=== PATIENT | male | born 1940 | race Caucasian/White ===

== ENCOUNTER 2016-06-27 01:42 | Emergency (ER) | payer OTHER ==
[~2016-06-27] VITALS: Ht 177.8 cm; Wt 77.0 kg
[~2016-06-27 01:42] MED LIST: AMLO10TA2 PO; LAMO100T PO; LISI20TA PO; METF500T PO; NOVONP2 SQ; OCUVTAB4 PO; PLAV75TA29 PO; PRIM50TA5 PO; SERT-132 PO; SIMV20TA PO; VITA100036 PO; VITA10004 PO
[2016-06-27 01:53] VITALS: BP 148/77; PULSE 67; RESP 18; TEMP 97.6; O2SAT 96
[2016-06-27 02:00] VITALS: RESP 18; O2SAT 98
[2016-06-27] MEDS ORDERED: MECL-62 PO (02:00)
[2016-06-27 02:01] VITALS: BP 148/77; PULSE 67; RESP 18; TEMP 97.6; O2SAT 96
[2016-06-27] MEDS ORDERED: SODIUM CHLOR 0.9% 1000 ML INJ 1,000 ML IV SCH ×2 (03:04→04:15)
[2016-06-27] MEDS ORDERED: SODIUM CHLORIDE 0.9% FLUSH 5 ML FLUSH IVF PRN (03:15)
--- NOTE | 2016-06-27 03:25 | RADHPO ---
EXAM DATE/TIME: 06/27/2016 03:02 [facility] COMPARISON: CT BRAIN W/O CONTRAST, March 27, 2016, 14:54. INDICATIONS : Altered mental status. RADIATION DOSE: 60.08 CTDIvol (mGy) MEDICAL HISTORY : Diabetes mellitus type 2. Hypertension. Cerebrovascular disease. SURGICAL HISTORY : None. ENCOUNTER: Initial ACUITY: 1 day PAIN SCALE: 0/10 LOCATION: cranial TECHNIQUE: Multiple contiguous axial images were obtained of the head. Using automated exposure control and adj ustment of the mA and/or kV according to patient size, radiation dose was kept as low as reasonably a chievable to obtain optimal diagnostic quality images. FINDINGS: There are remote thalamic and basal ganglia lacunar infarcts bilaterally. Patchy white matter disease is noted in the bilateral centrum semiovale and periventricular white matter which is stable. There are no signs of acute infarct, intracranial hemorrhage or mass. No fractures. CONCLUSION: Remote infarcts and white matter disease. Nroth Hankins MD on June 27, 2016 at 3:22 Board Certified Radiologist. This report was verified electronically.
[2016-06-27 03:37] VITALS: BP 133/68; PULSE 62; RESP 18; O2SAT 97
[2016-06-27 03:41] LABS: AUTOMATED NEUTROPHIL # 5.2 TH/MM3 (1.8-7.7); BASOPHIL % 0.6 % (0.0-2.0); EOSINOPHIL # 0.3 TH/MM3 (0-0.4); EOSINOPHIL % 3.9 % (0.0-4.0); HEMATOCRIT 42.2 % (39.0-51.0); HEMO FLAGS DIFF FINAL; LYMPHOCYTE # 1.6 TH/MM3 (1.0-4.8); MEAN CELL VOLUME 89.9 FL (80.0-100.0); MEAN CORPUSCULAR HEMOGLOBIN 30.8 PG (27.0-34.0); MEAN CORPUSCULAR HGB CONC 34.3 % (32.0-36.0); MONO % 7.8 % (0.0-8.0); NEUT % 66.7 % (16.0-70.0); PLATELET COUNT 206 TH/MM3 (150-450); RED CELL DISTRIBUTION WIDTH 12.4 % (11.6-17.2); WHITE BLOOD COUNT 7.7 TH/MM3 (4.0-11.0)
[2016-06-27 03:46] LABS: CHLORIDE 101 MEQ/L (98-107); POTASSIUM 4.5 MEQ/L (3.5-5.1); SODIUM (NA) 140 MEQ/L (136-145)
[2016-06-27 03:50] LABS: ANION GAP 8 MEQ/L (5-15); BICARBONATE 31.2 MEQ/L (21.0-32.0); BLOOD UREA NITROGEN 22 MG/DL (7-18)
[2016-06-27 03:53] LABS: ALT (GPT) 15 U/L (12-78); AST (GOT) 9 U/L (15-37); GLOMERULAR FILTRATION RATE 59 ML/MIN (>89)
[2016-06-27 03:54] LABS: TOTAL BILIRUBIN ADULT 0.3 MG/DL (0.2-1.0)
[2016-06-27 03:55] LABS: ALKALINE PHOSPHATASE 38 U/L (45-117)
--- NOTE | 2016-06-27 04:25 | PD ---
HPI Chief Complaint: General Weakness Time Seen by Provider: 03:04 Travel History International Travel<30 days: No Contact w/Intl Traveler<30days: No Traveled to known affect area: No History of Present Illness HPI The patient is a 76-year-old male that complains of persistent lightheadedness and generalized weakness for 2 days. He does have a history of multiple strokes in the past. He states he was nauseated yesterday and was not drinking fluids. He denies any fever. He is not nauseated now but feels lightheaded. He denies any focal neurologic change. He has had strokes in the past which left him with some right sided hemiparesis and numbness on the right side. PFSH Past Medical History Hx Anticoagulant Therapy: Yes Arthritis: Yes Asthma: No Autoimmune Disease: No Anxiety: Yes (SEVERELY CLAUSTROPHIC W/MRI) Depression: Yes Heart Rhythm Problems: No Cancer: Yes (PROSTATE 2010, skin) Cardiovascular Problems: Yes High Cholesterol: Yes Chemotherapy: No Chest Pain: No Congestive Heart Failure: No COPD: No Cerebrovascular Accident: Yes Diabetes: Yes Patient Takes Glucophage: Yes Diminished Hearing: Yes Endocrine: Yes Gastrointestinal Disorders: No GERD: No Genitourinary: Yes (KIDNEY FUNCTION ) Headaches: Yes Hiatal Hernia: No Heparin Induced Thrombocytopen: No Hypertension: Yes Immune Disorder: No Implanted Vascular Access Dvce: No Kidney Stones: No Musculoskeletal: Yes Neurologic: Yes (CVA 2008, 2014) Psychiatric: No Reproductive: No Respiratory: No Immunizations Current: Yes Migraines: No Myocardial Infarction: No Radiation Therapy: Yes (2010) Renal Failure: No Seizures: No Sickle Cell Disease: No Sleep Apnea: No Thyroid Disease: No Ulcer: No Tetanus Vaccination: < 5 Years Influenza Vaccination: Yes PNEUMOCCOCAL Vaccine (Year): 1 Past Surgical History Abdominal Surgery: Yes (appy) AICD: No Appendectomy: Yes Arteriovenous Shunt: No Cardiac Surgery: No Ear Surgery: No Endocrine Surgery: No Eye Surgery: No Genitourinary Surgery: No Gynecologic Surgery: No Insulin Pump: No Joint Replacement: No Neurologic Surgery: No Oral Surgery: No Pacemaker: No Thoracic Surgery: No Other Surgery: Yes Family History Family Hypercholesterolemia: Yes Social History Alcohol Use: No Tobacco Use: No Substance Use: No Allergies-Medications (Allergen,Severity, Reaction): Coded Allergies: No Known Allergies (Verified , 1/27/17) Reported Meds & Prescriptions Reported Meds & Active Scripts Active Plavix (Clopidogrel Bisulfate) 75 Mg Tab 75 Mg PO DAILY 30 Days Reported Meclizine (Meclizine HCl) 25 Mg Tab 25 Mg PO BID NEB PRN Vitamin B12 Tr (Cyanocobalamin) 1,000 Mcg Tab 1,000 Mcg PO DAILY Vitamin D3 (Cholecalciferol) 1,000 Unit Cap 1,000 Units PO DAILY Preservision Areds (Multiple Vitamins W/ Minerals) 1 Tab 1 Tab PO DAILY Amlodipine (Amlodipine Besylate) 10 Mg Tab 10 Mg PO DAILY Sertraline (Sertraline HCl) 50 Mg Tab 50 Mg PO DAILY Novolin N Inj (Insulin Human NPH) 1,000 Unit/10 Ml Vial 14 Units SQ DAILY Primidone 50 Mg Tab 150 Mg PO DAILY Lamotrigine 100 Mg Tab 100 Mg PO DAILY Simvastatin 20 Mg Tab 20 Mg PO DAILY Lisinopril-Hctz 20-12.5 Mg Tab 1 Tab PO DAILY Metformin (Metformin HCl) 500 Mg Tab 1,000 Mg PO DAILY With a meal Review of Systems Except as stated in HPI: all other systems reviewed are Neg Physical Exam Narrative GENERAL: The patient is alert, oriented 3, moderately dehydrated appearing in otherwise no apparent distress. His vital signs show blood pressure 148/77 but are otherwise normal. SKIN: Warm and dry. He has some peeling of dry skin present which is chronic. HEAD: Atraumatic. Normocephalic. EYES: Pupils equal and round. No scleral icterus. No injection or drainage. ENT: No nasal bleeding or discharge. Mucous membranes pink but somewhat dry. NECK: Trachea midline. No JVD. CARDIOVASCULAR: Regular rate and rhythm. No murmur appreciated. RESPIRATORY: No accessory muscle use. Clear to auscultation. Breath sounds equal bilaterally. GASTROINTESTINAL: Abdomen soft, non-tender, nondistended. Hepatic and splenic margins not palpable. MUSCULOSKELETAL: No obvious deformities. No clubbing. No cyanosis. No edema. NEUROLOGICAL: Awake and alert. No obvious cranial nerve deficits. Normal speech. 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 I can tell some slight difference with a slight right sided weakness in the upper arm strength PSYCHIATRIC: Appropriate mood and affect; insight and judgment normal. Data Data Last Documented VS Vital Signs Date Time Temp Pulse Resp B/P Pulse Ox O2 Delivery O2 Flow Rate FiO2 06/27/16 03:37 62 18 133/68 97 Room Air 06/27/16 02:[address] Brain W/O Iv Contrast(Rout) (06/27/16 02:55) Complete Blood Count With Diff (06/27/16 03:04) Comprehensive Metabolic Panel (06/27/16 03:04) Lipase (06/27/16 03:04) Urinalysis - C+S If Indicated (06/27/16 03:04) Iv Access Insert/Monitor (06/27/16 03:04) Ecg Monitoring (06/27/16 03:04) Oximetry (06/27/16 03:04) Sodium Chlor 0.9% 1000 Ml Inj (Ns 1000 M (06/27/16 03:04) Sodium Chloride 0.9% Flush (Ns Flush) (06/27/16 03:15) Sodium Chlor 0.9% 1000 Ml Inj (Ns 1000 M (06/27/16 04:15) Labs Laboratory Tests Test 06/27/16 06/27/16 03:15 04:20 White Blood Count 7.7 TH/MM3 Red Blood Count 4.70 MIL/MM3 Hemoglobin 14.5 GM/DL Hematocrit 42.2 % Mean Corpuscular Volume 89.9 FL Mean Corpuscular Hemoglobin 30.8 PG Mean Corpuscular Hemoglobin 34.3 % Concent Red Cell Distribution Width 12.4 % Platelet Count 206 TH/MM3 Mean Platelet Volume 8.1 FL Neutrophils (%) (Auto) 66.7 % Lymphocytes (%) (Auto) 21.0 % Monocytes (%) (Auto) 7.8 % Eosinophils (%) (Auto) 3.9 % Basophils (%) (Auto) 0.6 % Neutrophils # (Auto) 5.2 TH/MM3 Lymphocytes # (Auto) 1.6 TH/MM3 Monocytes # (Auto) 0.6 TH/MM3 Eosinophils # (Auto) 0.3 TH/MM3 Basophils # (Auto) 0.0 TH/MM3 CBC Comment DIFF FINAL Differential Comment Sodium Level 140 MEQ/L Potassium Level 4.5 MEQ/L Chloride Level 101 MEQ/L Carbon Dioxide Level 31.2 MEQ/L Anion Gap 8 MEQ/L Blood Urea Nitrogen 22 MG/DL Creatinine 1.20 MG/DL Estimat Glomerular Filtration 59 ML/MIN Rate Random Glucose 90 MG/DL Calcium Level 9.3 MG/DL Total Bilirubin 0.3 MG/DL Aspartate Amino Transf 9 U/L (AST/SGOT) Alanine Aminotransferase 15 U/L (ALT/SGPT) Alkaline Phosphatase 38 U/L Total Protein 7.0 GM/DL Albumin 3.7 GM/DL Lipase 214 U/L Urine Color YELLOW Urine Turbidity CLEAR Urine pH 5.5 Urine Specific [place] 1.012 Urine Protein NEG mg/dL Urine Glucose (UA) NEG mg/dL Urine Ketones NEG mg/dL Urine Occult Blood NEG Urine Nitrite NEG Urine Bilirubin NEG Urine Leukocyte Esterase NEG Urine RBC 0-2 /hpf Urine WBC 0-2 /hpf Urine Squamous Epithelial 0-5 /hpf Cells Urine Bacteria NONE /hpf Microscopic Urinalysis Comment CULT NOT INDICATED MDM Medical Decision Making Medical Screen Exam Complete: Yes Emergency Medical Condition: Yes Medical Record Reviewed: Yes Interpretation(s) The CBC is normal. The complete metabolic profile is normal except for a BUN of [address] brain shows remote infarcts and white matter disease but no acute change and no sign of acute infarct, intracranial hemorrhage or mass. The urinalysis was obtained after 2 L of fluid was given to the patient and is normal. Differential Diagnosis Dehydration, electrolyte disorder, ischemic CVA, intracranial bleedunlikely, intracranial massunlikely, hypo-/hyperglycemia, renal insufficiency, pancreatitis, gastroenteritis Narrative Course It is now 0414 and the patient feels much better. He has been hydrated with 1 L of fluid and still could use another liter fluid. He is still unable to make urine, likely because he is so dehydrated. The BUN suggest dehydration and is elevated at 22. Diagnosis Primary Impression: Dehydration, moderate Additional Instructions: It appears that your symptoms were caused by dehydration. I can find no evidence of stroke either on the CT scan or clinically. I do find evidence of dehydration on your laboratory work. Follow-up with your primary care physician next week. Med/Other Pt SpecificInfo: No Change to Meds Disposition: 01 DISCHARGE HOME Condition: Stable Patrick Jauregui MD Jun 27, 2016 04:25
[2016-06-27 04:33] LABS: BLOOD, URINE NEG (NEG); GLUCOSE,URINE NEG (NEG); KETONE, URINE NEG (NEG); NITRITE,URINE NEG (NEG); PH, URINE 5.5 (5.0-8.5)
[2016-06-27 04:41] LABS: COMMENT (UR) CULT NOT INDICATED; CULTURE IF INDICATED CULT NOT INDICATED; RBC, URINE 0-2 /hpf (0-3); SQUAMOUS EPITHELIAL CELL URINE 0-5 /hpf (0-5); URINE COLOR YELLOW (YELLW/STRAW); WBC, URINE 0-2 /hpf (0-5)
[2016-06-27 05:26] VITALS: BP 137/79; PULSE 66; RESP 18; O2SAT 97
== END 2016-06-27 05:29 | disposition home or self-care (01) ==
LOC: PHED 01:42
DX: E86.0 Dehydration (principal)
CPT/HCPCS: 70450; 80053; 81001; 83690; 85025; 96360; 96361; 99285; J7030

== ENCOUNTER 2017-03-01 10:36 | Emergency (ER) | payer OTHER ==
[~2017-03-01] VITALS: Ht 177.8 cm; Wt 80.5 kg
[~2017-03-01 10:36] MED LIST changes: +MECL-62 PO
[2017-03-01 11:04] VITALS: BP 166/68; PULSE 52; RESP 16; TEMP 98; O2SAT 96
--- NOTE | 2017-03-01 11:09 | PD ---
HPI Chief Complaint: generalized weakness Time Seen by Provider: 10:48 Travel History International Travel<30 days: No Contact w/Intl Traveler<30days: No Traveled to known affect area: No History of Present Illness HPI This patient has history of strokes and vertigo and ataxia. He gets around at home with a combination of wheelchair and walker and cane. He woke up this morning at 5 AM and felt lightheaded. He felt like he had generalized weakness. Denies any specific muscle group weakness anywhere. He does have chronic right sided numbness from prior stroke. He denies any change in that. He also has problems with vertigo. He closes his eyes he feels dizzy and has room spinning sensation. He says that his head feels "full" . Denies headache. He is fairly vague. It was moderately severe. Duration is 6 hours but symptoms are present when he woke up. No alleviating factors. No obvious exacerbating factors. PFSH Past Medical History Hx Anticoagulant Therapy: Yes Arthritis: Yes Asthma: No Autoimmune Disease: No Anxiety: Yes (SEVERELY CLAUSTROPHIC W/MRI) Depression: Yes Heart Rhythm Problems: No Cancer: Yes (PROSTATE 2010, skin) Cardiovascular Problems: Yes High Cholesterol: Yes Chemotherapy: No Chest Pain: No Congestive Heart Failure: No COPD: No Cerebrovascular Accident: Yes Diabetes: Yes Diminished Hearing: Yes Endocrine: Yes Gastrointestinal Disorders: No GERD: No Genitourinary: Yes (KIDNEY FUNCTION ) Headaches: Yes Hiatal Hernia: No Heparin Induced Thrombocytopen: No Hypertension: Yes Immune Disorder: No Implanted Vascular Access Dvce: No Kidney Stones: No Musculoskeletal: Yes Neurologic: Yes (CVA 2008, 2014) Psychiatric: No Reproductive: No Respiratory: No Immunizations Current: Yes Migraines: No Myocardial Infarction: No Radiation Therapy: Yes (2010) Renal Failure: No Seizures: No Sickle Cell Disease: No Sleep Apnea: No Thyroid Disease: No Ulcer: No PNEUMOCCOCAL Vaccine (Year): 1 Past Surgical History Abdominal Surgery: Yes (app) AICD: No Appendectomy: Yes Arteriovenous Shunt: No Cardiac Surgery: No Ear Surgery: No Endocrine Surgery: No Eye Surgery: No Genitourinary Surgery: No Gynecologic Surgery: No Insulin Pump: No Joint Replacement: No Neurologic Surgery: No Oral Surgery: No Pacemaker: No Thoracic Surgery: No Other Surgery: Yes Family History Family Hypercholesterolemia: Yes Social History Alcohol Use: No Tobacco Use: No Substance Use: No Allergies-Medications (Allergen,Severity, Reaction): Coded Allergies: No Known Allergies (Verified , 03/01/17) Reported Meds & Prescriptions Reported Meds & Active Scripts Active Plavix (Clopidogrel Bisulfate) 75 Mg Tab 75 Mg PO DAILY 30 Days Reported Meclizine (Meclizine HCl) 25 Mg Tab 25 Mg PO BID NEB PRN Vitamin B12 Tr (Cyanocobalamin) 1,000 Mcg Tab 1,000 Mcg PO DAILY Vitamin D3 (Cholecalciferol) 1,000 Unit Cap 1,000 Units PO DAILY Preservision Areds (Multiple Vitamins W/ Minerals) 1 Tab 1 Tab PO DAILY Amlodipine (Amlodipine Besylate) 10 Mg Tab 10 Mg PO DAILY Sertraline (Sertraline HCl) 50 Mg Tab 50 Mg PO DAILY Novolin N Inj (Insulin Human NPH) 1,000 Unit/10 Ml Vial 14 Units SQ DAILY Primidone 50 Mg Tab 150 Mg PO DAILY Lamotrigine 100 Mg Tab 100 Mg PO DAILY Simvastatin 20 Mg Tab 20 Mg PO DAILY Lisinopril-Hctz 20-12.5 Mg Tab 1 Tab PO DAILY Metformin (Metformin HCl) 500 Mg Tab 1,000 Mg PO DAILY With a meal Review of Systems General / Constitutional: No: Fever Eyes: No: Visual changes HENT: Positive: Vertigo, Lightheadedness, No: Headaches Cardiovascular: No: Chest Pain or Discomfort Respiratory: No: Shortness of Breath Gastrointestinal: No: Abdominal Pain Genitourinary: No: Dysuria Musculoskeletal: No: Pain Skin: No Rash Neurologic: Positive: Weakness, Dizziness, Tremor, Ataxia Psychiatric: No: Depression Endocrine: No: Polydipsia Hematologic/Lymphatic: No: Easy Bruising Physical Exam Narrative GENERAL: Well-nourished, well-developed patient in no apparent distress. SKIN: Focused skin assessment reveals no rash and nodules. Skin is Warm and dry. HEAD: Atraumatic. Normocephalic. EYES: Pupils equal and round. No scleral icterus. No injection or drainage. ENT: No nasal bleeding or discharge. Mucous membranes pink and moist. NECK: Trachea midline. No JVD. CARDIOVASCULAR: Regular rate and rhythm. No murmur appreciated. RESPIRATORY: No accessory muscle use. Clear to auscultation. Breath sounds equal bilaterally. GASTROINTESTINAL: Abdomen soft, non-tender, nondistended. Hepatic and splenic margins not palpable. MUSCULOSKELETAL: No obvious deformities. No clubbing. No cyanosis. No edema. NEUROLOGICAL: Awake and alert. No obvious cranial nerve deficits. Motor grossly within normal limits. Normal speech. Slight right hand tremor. No facial droop. PSYCHIATRIC: Appropriate mood and affect; insight and judgment normal. Data Data Last Documented VS Vital Signs Date Time Temp Pulse Resp B/P (MAP) Pulse Ox O2 Delivery O2 Flow Rate FiO2 03/01/17 11:13 (100) 03/01/17 11:11 Room Air 03/01/17 11:10 95 03/01/17 11:04 98.0 52 16 Orders Orders Electrocardiogram (03/01/17 11:01) Prothrombin Time / Inr (Pt) (03/01/17 11:01) Act Partial Throm Time (Ptt) (03/01/17 11:01) Complete Blood Count With Diff (03/01/17 11:01) Basic Metabolic Panel (Bmp) (03/01/17 11:01) Urinalysis - C+S If Indicated (03/01/17 11:01) Ct Brain W/O Iv Contrast(Rout) (03/01/17 11:01) Ecg Monitoring (03/01/17 11:01) Iv Access Insert/Monitor (03/01/17 11:01) Oximetry (03/01/17 11:01) Sodium Chloride 0.9% Flush (Ns Flush) (03/01/17 11:15) Labs Laboratory Tests Test 03/01/17 11:05 White Blood Count 5.8 TH/MM3 Red Blood Count 4.98 MIL/MM3 Hemoglobin 14.9 GM/DL Hematocrit 45.3 % Mean Corpuscular Volume 90.9 FL Mean Corpuscular Hemoglobin 29.9 PG Mean Corpuscular Hemoglobin Concent 32.9 % Red Cell Distribution Width 12.7 % Platelet Count 208 TH/MM3 Mean Platelet Volume 8.2 FL Neutrophils (%) (Auto) 66.9 % Lymphocytes (%) (Auto) 20.6 % Monocytes (%) (Auto) 8.9 % Eosinophils (%) (Auto) 2.8 % Basophils (%) (Auto) 0.8 % Neutrophils # (Auto) 3.9 TH/MM3 Lymphocytes # (Auto) 1.2 TH/MM3 Monocytes # (Auto) 0.5 TH/MM3 Eosinophils # (Auto) 0.2 TH/MM3 Basophils # (Auto) 0.0 TH/MM3 CBC Comment DIFF FINAL Differential Comment Prothrombin Time 11.2 SEC Prothromb Time International Ratio 1.0 RATIO Activated Partial Thromboplast Time 26.3 SEC Blood Urea Nitrogen 19 MG/DL Creatinine 1.10 MG/DL Random Glucose 116 MG/DL Calcium Level 9.5 MG/DL Sodium Level 136 MEQ/L Potassium Level 4.2 MEQ/L Chloride Level 97 MEQ/L Carbon Dioxide Level 33.0 MEQ/L Anion Gap 6 MEQ/L Estimat Glomerular Filtration Rate 65 ML/MIN MDM Medical Decision Making Medical Screen Exam Complete: Yes Emergency Medical Condition: Yes Medical Record Reviewed: Yes Differential Diagnosis TIA, CVA, vertigo Narrative Course I have reviewed the patient's electronic medical record. Reviewed his neurology consultation from his admission of May 2016. IV placed CBC is normal Metabolic profile is normal Coagulation studies are normal I reviewed his EKG which shows sinus rhythm without ectopy Extended cardiac monitoring reveals sinus rhythm without ectopy Brain CT is normal Patient symptoms are vague and generalized. I don't see any focal findings on exam or anything to suggest acute stroke or TIA. There is at least some component of vertigo to this. I tried to discuss with his neurologist Dr. West. We've tried over the last hour and a half but no response to messages left. I'm going to discharge him home. He will call his neurologist tomorrow. Hopefully he will be able to get through he is here. He does have an appointment in 3 days set up. Diagnosis Primary Impression: Generalized weakness Additional Impressions: Dizziness BPV (benign positional vertigo) Qualified Codes: H81.10 - Benign paroxysmal vertigo, unspecified ear Additional Instructions: The patient was advised to follow up with their physician and return if they worsen. Med/Other Pt SpecificInfo: Other Disposition: DISCHARGE HOME Condition: Stable Dandre Chin MD Mar 01, 2017 11:09
[2017-03-01 11:10] VITALS: O2SAT 95
[2017-03-01] MEDS ORDERED: SODIUM CHLORIDE 0.9% FLUSH 10 ML FLUSH IVF PRN (11:15)
[2017-03-01 11:21] LABS: AUTOMATED NEUTROPHIL # 3.9 TH/MM3 (1.8-7.7); BASOPHIL % 0.8 % (0.0-2.0); EOSINOPHIL # 0.2 TH/MM3 (0-0.4); EOSINOPHIL % 2.8 % (0.0-4.0); HEMATOCRIT 45.3 % (39.0-51.0); HEMO FLAGS DIFF FINAL; LYMPH % 20.6 % (9.0-44.0); LYMPHOCYTE # 1.2 TH/MM3 (1.0-4.8); MEAN CELL VOLUME 90.9 FL (80.0-100.0); MEAN CORPUSCULAR HEMOGLOBIN 29.9 PG (27.0-34.0); MEAN CORPUSCULAR HGB CONC 32.9 % (32.0-36.0); MONO % 8.9 % (0.0-8.0); NEUT % 66.9 % (16.0-70.0); PLATELET COUNT 208 TH/MM3 (150-450); RED BLOOD COUNT 4.98 MIL/MM3 (4.50-5.90); RED CELL DISTRIBUTION WIDTH 12.7 % (11.6-17.2); WHITE BLOOD COUNT 5.8 TH/MM3 (4.0-11.0)
[2017-03-01 11:30] LABS: POTASSIUM 4.2 MEQ/L (3.5-5.1)
[2017-03-01 11:34] LABS: APTT (PATIENT) 26.3 SEC (24.3-30.1); PROTHROMBIN TIME - PATIENT 11.2 SEC (9.8-11.6)
--- NOTE | 2017-03-01 11:53 | RADRPT ---
EXAM DATE/TIME: 03/01/2017 11:38 [facility] COMPARISON: CT BRAIN W/O CONTRAST, June 27, 2016, 3:02. INDICATIONS : Generalized weakness and dizziness. RADIATION DOSE: 57.50 CTDIvol (mGy) MEDICAL HISTORY : Cerebrovascular disease. Carcinoma, prostate. Skin cancer. Diabetes. SURGICAL HISTORY : Appendectomy. ENCOUNTER: Initial ACUITY: 1 day PAIN SCALE: 0/10 LOCATION: cranial TECHNIQUE: Multiple contiguous axial images were obtained of the head. Using automated exposure control and adj ustment of the mA and/or kV according to patient size, radiation dose was kept as low as reasonably a chievable to obtain optimal diagnostic quality images. DICOM format image data is available electro nically for review and comparison. FINDINGS: CEREBRUM: The ventricles are normal for age. No evidence of midline shift, mass lesion, hemorrhage or acute in farction. No extra-axial fluid collections are seen. POSTERIOR FOSSA: The cerebellum and brainstem are intact. The 4th ventricle is midline. The cerebellopontine angle i s unremarkable. EXTRACRANIAL: The visualized portion of the orbits is intact. SKULL: The calvaria is intact. No evidence of skull fracture. CONCLUSION: No acute disease. Jenn Hope MD on March 01, 2017 at 11:51 Board Certified Radiologist. This report was verified electronically.
--- NOTE | 2017-03-01 12:05 | EKG ---
Date Performed: 03/01/2017 Time Performed: 10:48:15 PTAGE: 76 years EKG: SINUS BRADYCARDIA BORDERLINE ECG PREVIOUS TRACING : 03/27/2016 14.41 No change from previous tracing noted. DOCTOR: Tony Garcia Interpretating Date/Time 03/01/2017 12:03:29
[2017-03-01 13:55] VITALS: BP 148/73; PULSE 51; RESP 18; O2SAT 98
[2017-03-01 13:59] LABS: BLOOD, URINE NEG (NEG); GLUCOSE,URINE NEG (NEG); KETONE, URINE NEG (NEG); NITRITE,URINE NEG (NEG)
[2017-03-01 14:05] LABS: METHOD OF COLLECTION CLEAN CATCH; URINE COLOR YELLOW (YELLW/STRAW)
[2017-03-01 14:06] LABS: COMMENT (UR) CULT NOT INDICATED; CULTURE IF INDICATED CULT NOT INDICATED; RBC, URINE 0-3 /hpf (0-3); SQUAMOUS EPITHELIAL CELL URINE 0-5 /hpf (0-5)
== END 2017-03-01 14:28 | disposition home or self-care (01) ==
LOC: PHED 10:36
DX: R53.1 Weakness (principal); H81.10 Benign paroxysmal vertigo, unspecified ear; E11.9 Type 2 diabetes mellitus without complications; E78.00 Pure hypercholesterolemia, unspecified; H91.90 Unspecified hearing loss, unspecified ear; I10 Essential (primary) hypertension; Z85.828 Personal history of other malignant neoplasm of skin; Z86.73 Personal history of transient ischemic attack (TIA), and cerebral infarction without residual deficits; Z79.01 Long term (current) use of anticoagulants; Z85.46 Personal history of malignant neoplasm of prostate
CPT/HCPCS: 70450; 80048; 81001; 85025; 85610; 85730; 93005; 99285

== ENCOUNTER 2017-07-05 17:25 | Observation (INO) | payer OTHER ==
[~2017-07-05] VITALS: Ht 177.8 cm; Wt 81.0 kg
[~2017-07-05 17:25] MED LIST changes: +CHOL10008 PO; -VITA100036 PO
[2017-07-05 17:30] VITALS: BP 187/78; PULSE 55; RESP 16; TEMP 97.8; O2SAT 99
[2017-07-05] MEDS ORDERED: SODIUM CHLORIDE 0.9% FLUSH 10 ML FLUSH IVF PRN (17:45)
[2017-07-05] MEDS ORDERED: ASPIRIN 325 MG TAB PO ONE (17:45)
--- NOTE | 2017-07-05 17:47 | PD ---
HPI Chief Complaint: Chest Pain Time Seen by Provider: 17:38 Travel History International Travel<30 days: No Contact w/Intl Traveler<30days: No Traveled to known affect area: No History of Present Illness HPI This patient complains of chest pain. Location is left lower chest. Duration 3 hours. Severity is moderate. No injury or fever or productive cough or heartburn reported. He does not have any history of coronary disease per his report. His last stress test was summer. No exacerbating factors. No alleviating factors. Pain is an aching in quality. His bradycardia is chronic PFSH Past Medical History Hx Anticoagulant Therapy: Yes Arthritis: Yes Asthma: No Autoimmune Disease: No Anxiety: Yes (SEVERELY CLAUSTROPHIC W/MRI) Depression: Yes Heart Rhythm Problems: No Cancer: Yes (PROSTATE 2011, skin) Cardiovascular Problems: Yes High Cholesterol: Yes Chemotherapy: No Chest Pain: No Congestive Heart Failure: No COPD: No Cerebrovascular Accident: Yes (BILATERAL LOWER EXTERMITY WEAKNESS, RIGHT SIDED NUMBNESS) Diabetes: Yes Diminished Hearing: Yes Endocrine: Yes Gastrointestinal Disorders: No GERD: No Genitourinary: Yes (KIDNEY FUNCTION ) Headaches: Yes Hiatal Hernia: No Heparin Induced Thrombocytopen: No Hypertension: Yes Immune Disorder: No Implanted Vascular Access Dvce: No Kidney Stones: No Musculoskeletal: Yes Neurologic: Yes (CVA 2008, 2014) Psychiatric: No Reproductive: No Respiratory: No Immunizations Current: Yes Migraines: No Myocardial Infarction: No Radiation Therapy: Yes (2010) Renal Failure: No Seizures: No Sickle Cell Disease: No Sleep Apnea: No Thyroid Disease: No Ulcer: No PNEUMOCCOCAL Vaccine (Year): 1 Past Surgical History Abdominal Surgery: Yes (appy) AICD: No Appendectomy: Yes Arteriovenous Shunt: No Cardiac Surgery: No Ear Surgery: No Endocrine Surgery: No Eye Surgery: No Genitourinary Surgery: No Gynecologic Surgery: No Hysterectomy: No Insulin Pump: No Joint Replacement: No Neurologic Surgery: No Oral Surgery: No Pacemaker: No Thoracic Surgery: No Other Surgery: Yes (SKIN CANCER REMOVAL) Family History Family Hypercholesterolemia: Yes Social History Alcohol Use: No Tobacco Use: No Substance Use: No Allergies-Medications (Allergen,Severity, Reaction): Coded Allergies: No Known Allergies (Verified Adverse Reaction, Unknown, 07/05/17) Reported Meds & Prescriptions Reported Meds & Active Scripts Active Plavix (Clopidogrel Bisulfate) 75 Mg Tab 75 Mg PO DAILY 30 Days Reported Meclizine (Meclizine HCl) 25 Mg Tab 25 Mg PO BID NEB PRN Vitamin B12 Tr (Cyanocobalamin) 1,000 Mcg Tab 1,000 Mcg PO DAILY Vitamin D3 (Cholecalciferol) 1,000 Unit Cap 1,000 Units PO DAILY Preservision Areds (Multiple Vitamins W/ Minerals) 1 Tab 1 Tab PO DAILY Amlodipine (Amlodipine Besylate) 10 Mg Tab 10 Mg PO DAILY Sertraline (Sertraline HCl) 50 Mg Tab 50 Mg PO DAILY Novolin N Inj (Insulin Human NPH) 1,000 Unit/10 Ml Vial 14 Units SQ DAILY Primidone 50 Mg Tab 150 Mg PO DAILY Lamotrigine 100 Mg Tab 100 Mg PO DAILY Simvastatin 20 Mg Tab 20 Mg PO DAILY Lisinopril-Hctz 20-12.5 Mg Tab 1 Tab PO DAILY Metformin (Metformin HCl) 500 Mg Tab 1,000 Mg PO BID With a meal Review of Systems General / Constitutional: No: Fever Eyes: No: Visual changes HENT: No: Headaches Cardiovascular: Positive: Chest Pain or Discomfort Respiratory: No: Shortness of Breath Gastrointestinal: No: Abdominal Pain Genitourinary: No: Dysuria Musculoskeletal: No: Pain Skin: No Rash Neurologic: No: Weakness Psychiatric: No: Depression Endocrine: No: Polydipsia Hematologic/Lymphatic: No: Easy Bruising Physical Exam Narrative GENERAL: Well-nourished, well-developed patient in no apparent distress. SKIN: Focused skin assessment reveals no rash and nodules. Skin is Warm and dry. HEAD: Atraumatic. Normocephalic. EYES: Pupils equal and round. No scleral icterus. No injection or drainage. ENT: No nasal bleeding or discharge. Mucous membranes pink and moist. NECK: Trachea midline. No JVD. CARDIOVASCULAR: Regular rate and rhythm. No murmur appreciated. RESPIRATORY: No accessory muscle use. Clear to auscultation. Breath sounds equal bilaterally. GASTROINTESTINAL: Abdomen soft, non-tender, nondistended. Hepatic and splenic margins not palpable. MUSCULOSKELETAL: No obvious deformities. No clubbing. No cyanosis. No edema. NEUROLOGICAL: Awake and alert. No obvious cranial nerve deficits. Motor grossly within normal limits. Normal speech. PSYCHIATRIC: Appropriate mood and affect; insight and judgment normal. Data Data Last Documented VS Vital Signs Date Time Temp Pulse Resp B/P (MAP) Pulse Ox O2 Delivery O2 Flow Rate FiO2 07/05/17 19:08 58 16 168/72 (104) 99 Room Air 07/05/17 17:30 97.8 Orders Orders Electrocardiogram (07/05/17 17:43) Basic Metabolic Panel (Bmp) (07/05/17 17:43) Ckmb (Isoenzyme) Profile (07/05/17 17:43) Complete Blood Count With Diff (07/05/17 17:43) Prothrombin Time / Inr (Pt) (07/05/17 17:43) Act Partial Throm Time (Ptt) (07/05/17 17:43) Troponin I (07/05/17 17:43) Chest, Single Ap (07/05/17 17:43) Ecg Monitoring (07/05/17 17:43) Iv Access Insert/Monitor (07/05/17 17:43) Oximetry (07/05/17 17:43) Aspirin (Aspirin) (07/05/17 17:45) Sodium Chloride 0.9% Flush (Ns Flush) (07/05/17 17:45) Admit Order (Ed Use Only) (07/05/17 19:18) Labs Laboratory Tests Test 07/05/17 18:09 White Blood Count 5.9 TH/MM3 Red Blood Count 4.50 MIL/MM3 Hemoglobin 13.7 GM/DL Hematocrit 41.0 % Mean Corpuscular Volume 91.1 FL Mean Corpuscular Hemoglobin 30.5 PG Mean Corpuscular Hemoglobin Concent 33.5 % Red Cell Distribution Width 12.3 % Platelet Count 182 TH/MM3 Mean Platelet Volume 7.9 FL Neutrophils (%) (Auto) 62.3 % Lymphocytes (%) (Auto) 23.9 % Monocytes (%) (Auto) 9.4 % Eosinophils (%) (Auto) 3.3 % Basophils (%) (Auto) 1.1 % Neutrophils # (Auto) 3.6 TH/MM3 Lymphocytes # (Auto) 1.4 TH/MM3 Monocytes # (Auto) 0.6 TH/MM3 Eosinophils # (Auto) 0.2 TH/MM3 Basophils # (Auto) 0.1 TH/MM3 CBC Comment DIFF FINAL Differential Comment Prothrombin Time 11.2 SEC Prothromb Time International Ratio 1.1 RATIO Activated Partial Thromboplast Time 25.7 SEC Blood Urea Nitrogen 19 MG/DL Creatinine 0.94 MG/DL Random Glucose 87 MG/DL Calcium Level 8.9 MG/DL Sodium Level 132 MEQ/L Potassium Level 3.8 MEQ/L Chloride Level 97 MEQ/L Carbon Dioxide Level 27.7 MEQ/L Anion Gap 7 MEQ/L Estimat Glomerular Filtration Rate 78 ML/MIN Total Creatine Kinase 38 U/L Troponin I LESS THAN 0.02 NG/ML MDM Medical Decision Making Medical Screen Exam Complete: Yes Emergency Medical Condition: Yes Medical Record Reviewed: Yes Differential Diagnosis Differential diagnosis includes TX, angina, pericarditis, pleurisy, GERD, anxiety. Narrative Course I have reviewed the patient's electronic medical record. Reviewed his stress test and history and physical from summer 2015 IV placed I reviewed the EKG which shows sinus rhythm without ST elevation I reviewed the chest x-ray is normal Extended cardiac monitoring shows sinus bradycardia without ectopy All of his labs are normal including general blood counts and cardiac enzymes Patient has multiple risk factors for CAD and will be a 23 hour observation in the chest pain center in order to rule out cardiac cause of his symptoms Hospitalist's paged to discuss the case Diagnosis Primary Impression: Chest pain Qualified Codes: R07.9 - Chest pain, unspecified Additional Impressions: HTN (hypertension) Qualified Codes: I10 - Essential (primary) hypertension HLD (hyperlipidemia) Qualified Codes: E78.5 - Hyperlipidemia, unspecified Diabetes Qualified Codes: E11.9 - Type 2 diabetes mellitus without complications Admitting Information Admitting Physician Requests: Observation Dandre Chin MD Jul 05, 2017 17:47
[2017-07-05 17:51] VITALS: O2SAT 99
--- NOTE | 2017-07-05 18:06 | RADRPT ---
EXAM DATE/TIME: 07/05/2017 17:47 [facility] COMPARISON: CHEST SINGLE AP, February 21, 2016, 20:35. INDICATIONS : Shortness of breath. MEDICAL HISTORY : None. SURGICAL HISTORY : None. ENCOUNTER: Initial ACUITY: 1 day PAIN SCORE: 0/10 LOCATION: Bilateral chest FINDINGS: The lungs are clear without infiltrate, nodule, or mass. There is no appreciable pleural effusion fo r technique. Heart and mediastinum are unremarkable. Small calcified granuloma left lower lobe. CONCLUSION: No acute cardiopulmonary disease. Francisco Messina MD on July 05, 2017 at 18:04 Board Certified Radiologist. This report was verified electronically.
[2017-07-05 18:27] LABS: AUTOMATED NEUTROPHIL # 3.6 TH/MM3 (1.8-7.7); BASOPHIL # 0.1 TH/MM3 (0-0.2); BASOPHIL % 1.1 % (0.0-2.0); EOSINOPHIL # 0.2 TH/MM3 (0-0.4); EOSINOPHIL % 3.3 % (0.0-4.0); HEMOGLOBIN 13.7 GM/DL (13.0-17.0); LYMPH % 23.9 % (9.0-44.0); LYMPHOCYTE # 1.4 TH/MM3 (1.0-4.8); MEAN CELL VOLUME 91.1 FL (80.0-100.0); MEAN CORPUSCULAR HEMOGLOBIN 30.5 PG (27.0-34.0); MEAN CORPUSCULAR HGB CONC 33.5 % (32.0-36.0); MEAN PLATELET VOLUME 7.9 FL (7.0-11.0); MONO % 9.4 % (0.0-8.0); MONOCYTE # 0.6 TH/MM3 (0-0.9); NEUT % 62.3 % (16.0-70.0); PLATELET COUNT 182 TH/MM3 (150-450); RED CELL DISTRIBUTION WIDTH 12.3 % (11.6-17.2); WHITE BLOOD COUNT 5.9 TH/MM3 (4.0-11.0)
[2017-07-05 18:32] LABS: CHLORIDE 97 MEQ/L (98-107); SODIUM (NA) 132 MEQ/L (136-145)
[2017-07-05 18:34] LABS: CALCIUM 8.9 MG/DL (8.5-10.1)
[2017-07-05 18:35] LABS: BICARBONATE 27.7 MEQ/L (21.0-32.0); BLOOD UREA NITROGEN 19 MG/DL (7-18); GLUCOSE,RANDOM 87 MG/DL (74-106)
[2017-07-05 18:38] LABS: CREATININE 0.94 MG/DL (0.60-1.30); GLOMERULAR FILTRATION RATE 78 ML/MIN (>89)
[2017-07-05 18:39] VITALS: BP 168/76; PULSE 56; RESP 18; O2SAT 97
[2017-07-05 18:43] LABS: TROPONIN I LESS THAN 0.02 NG/ML (0.02-0.05)
[2017-07-05 18:45] LABS: INTERNATIONAL NORMALIZED RATIO 1.1 RATIO; PROTHROMBIN TIME - PATIENT 11.2 SEC (9.8-11.6)
[2017-07-05 19:08] VITALS: BP 168/72; PULSE 58; RESP 16; O2SAT 99
[2017-07-05 21:00] VITALS: BP 167/83; PULSE 57; RESP 16; TEMP 96.9; O2SAT 99
[2017-07-05] MEDS ORDERED: GLUCAGON 1 MG/ML VIAL OTHER PRN (21:30)
[2017-07-05] MEDS ORDERED: ONDANSETRON HCL 4 MG/2 ML VIAL IVP PRN (21:30)
[2017-07-05] MEDS ORDERED: SODIUM CHLORIDE 0.9% FLUSH 10 ML FLUSH IV FLUSH PRN (21:30)
[2017-07-05] MEDS ORDERED: DEXTROSE 50% IN WATER 50 ML VIAL(D50) IV PUSH PRN (21:30)
[2017-07-05] MEDS ORDERED: NALOXONE HCL 0.4 MG/ML AMP IV PUSH PRN (21:30)
[2017-07-05] MEDS ORDERED: ACETAMINOPHEN 325 MG TAB PO PRN (21:30)
[2017-07-05] MEDS ORDERED: MORPHINE SULFATE 2 MG/ML INJ IV PUSH PRN (22:00)
[2017-07-05] MEDS: SODIUM CHLOR 0.9% 1000 ML INJ 1,000 ML IV SCH (22:04)
[2017-07-05] MEDS: HEPARIN SODIUM - SQ 10,000 UNITS/ML VIAL SQ SCH (22:05)
[2017-07-05 23:00] VITALS: PULSE 69
[2017-07-06] VITALS: BP 161/80; PULSE 57; RESP 18; TEMP 97.6; O2SAT 97
[2017-07-06 01:19] LABS: TROPONIN I LESS THAN 0.02 NG/ML (0.02-0.05)
[2017-07-06 04:00] VITALS: BP 127/65; PULSE 50; RESP 16; TEMP 96.3; O2SAT 97
[2017-07-06] MEDS: HEPARIN SODIUM - SQ 10,000 UNITS/ML VIAL SQ SCH ×2 (05:19→12:47)
[2017-07-06 06:38] LABS: AUTOMATED NEUTROPHIL # 3.2 TH/MM3 (1.8-7.7); BASOPHIL # 0.1 TH/MM3 (0-0.2); BASOPHIL % 1.3 % (0.0-2.0); EOSINOPHIL # 0.2 TH/MM3 (0-0.4); EOSINOPHIL % 3.3 % (0.0-4.0); HEMATOCRIT 42.4 % (39.0-51.0); HEMOGLOBIN 14.1 GM/DL (13.0-17.0); LYMPH % 23.6 % (9.0-44.0); LYMPHOCYTE # 1.3 TH/MM3 (1.0-4.8); MEAN CORPUSCULAR HGB CONC 33.3 % (32.0-36.0); MEAN PLATELET VOLUME 8.3 FL (7.0-11.0); MONO % 9.6 % (0.0-8.0); MONOCYTE # 0.5 TH/MM3 (0-0.9); NEUT % 62.2 % (16.0-70.0); PLATELET COUNT 170 TH/MM3 (150-450); RED BLOOD COUNT 4.71 MIL/MM3 (4.50-5.90); RED CELL DISTRIBUTION WIDTH 12.3 % (11.6-17.2); WHITE BLOOD COUNT 5.3 TH/MM3 (4.0-11.0)
[2017-07-06 06:41] LABS: CHLORIDE 102 MEQ/L (98-107); SODIUM (NA) 137 MEQ/L (136-145)
[2017-07-06 06:44] LABS: CALCIUM 8.9 MG/DL (8.5-10.1)
[2017-07-06 06:45] LABS: BICARBONATE 30.2 MEQ/L (21.0-32.0); BLOOD UREA NITROGEN 15 MG/DL (7-18); GLUCOSE,RANDOM 70 MG/DL (74-106)
[2017-07-06 06:48] LABS: CREATININE 0.89 MG/DL (0.60-1.30); GLOMERULAR FILTRATION RATE 83 ML/MIN (>89)
[2017-07-06 06:53] LABS: TROPONIN I LESS THAN 0.02 NG/ML (0.02-0.05)
[2017-07-06 08:00] VITALS: BP 157/80; PULSE 52; PULSE 56; RESP 18; TEMP 97.9; O2SAT 95
[2017-07-06] MEDS: INSULIN ASPART SUPPLEMENTAL SCALE SQ SCH ×2 (08:00→12:00)
[2017-07-06] MEDS ORDERED: SODIUM CHLORIDE 0.9% FLUSH 10 ML FLUSH IV FLUSH SCH (09:00)
[2017-07-06] MEDS ORDERED: LIDOCAINE HCL 5% PATCH T-DERMAL SCH (10:00)
[2017-07-06] MEDS ORDERED: IBUPROFEN 400 MG TAB PO SCH (10:00)
[2017-07-06] MEDS: SODIUM CHLOR 0.9% 1000 ML INJ 1,000 ML IV SCH (10:36)
--- NOTE | 2017-07-06 10:52 | HHI.HP ---
[facility] Physician Alberto Lake Do, MD Admission Diagnosis chest pain Diagnoses: (1) Rib pain on left side Diagnosis: Principal Chief Complaint: Left sided rib pain Travel History International Travel<30 Days: No Contact w/Intl Traveler <30 Da: No Traveled to Known Affected Are: No History of Present Illness Written by Dandre Jauregui, acting as scribe for Dr. Monte on 07/06/17 at 10: 52. This is a 77 year-old male with known history of CVA, arthritis, anxiety, history of prostate cancer, hypertension, hyperlipidemia, diabetes, chronic kidney disease who presented to the hospital because of onset of left side rib pain. Patient states that the pain started at approximate 2:30 yesterday afternoon where he developed pain over on the left side of his rib cage which is reproducible on palpation. Patient states that it ranges anywhere from a 2/10 to a 8/10 on a pain scale with sharp jolts. Patient states that he is had this type of pain before and he has been intermittent since 1988 when he had a rib fracture. He states that it happens approximately 1-2 times a year. Patient did have the same episode approximately 1-1/2 years ago when he came to the hospital and was admitted for cardiac workup at that time patient did undergo cardiac workup and stress testing which was unremarkable. Patient denied any nausea, vomiting, diaphoresis, shortness of breath, dyspnea, lightheadedness, dizziness, radiation of pain. Denies any previous history of shingles. Does not know if he ever got his varicella vaccine. Review of Systems Musculoskeletal: COMPLAINS OF: Muscle aches (left-sided rib pain on palpation) Except as stated in HPI: all other systems reviewed are Neg Past Family Social History Past Medical History Hypertension, Hyperlipidemia Diabetes Chronic kidney disease History CVA with residual right sided weakness Arthritis Anxiety History of prostate cancer History of skin cancer Past Surgical History Appendectomy Benign lumps removed from the scan and chest area and back History of skin cancer removal Reported Medications Reported Meds & Active Scripts Active Plavix (Clopidogrel Bisulfate) 75 Mg Tab 75 Mg PO DAILY 30 Days Reported Meclizine (Meclizine HCl) 25 Mg Tab 25 Mg PO BID NEB PRN Vitamin B12 Tr (Cyanocobalamin) 1,000 Mcg Tab 1,000 Mcg PO DAILY Vitamin D3 (Cholecalciferol) 1,000 Unit Cap 1,000 Units PO DAILY Preservision Areds (Multiple Vitamins W/ Minerals) 1 Tab 1 Tab PO DAILY Amlodipine (Amlodipine Besylate) 10 Mg Tab 10 Mg PO DAILY Sertraline (Sertraline HCl) 50 Mg Tab 50 Mg PO DAILY Novolin N Inj (Insulin Human NPH) 1,000 Unit/10 Ml Vial 14 Units SQ DAILY Primidone 50 Mg Tab 150 Mg PO DAILY Lamotrigine 100 Mg Tab 100 Mg PO DAILY Simvastatin 20 Mg Tab 20 Mg PO DAILY Lisinopril-Hctz 20-12.5 Mg Tab 1 Tab PO DAILY Metformin (Metformin HCl) 500 Mg Tab 1,000 Mg PO BID With a meal Allergies: Coded Allergies: No Known Allergies (Verified Allergy, Unknown, 07/05/17) Family History Reviewed is significant for mother at age 75, she did have breast cancer, history of cardiac aneurysm. Patient states that father was alcoholic Social History Patient quit drinking 44 years ago, patient quit smoking 43 years ago. Prior to that he smoked 1-1/2 pack a cigarettes a day since he was 12 years old. Denies any illicit drugs Physical Exam Vital Signs Vital Signs Date Time Temp Pulse Resp B/P (MAP) Pulse Ox O2 Delivery O2 Flow Rate FiO2 07/06/17 08:00 97.9 52 18 157/80 (105) 95 07/06/17 04:00 96.3 50 16 127/65 (85) 97 07/06/17 00:00 97.6 57 18 161/80 (107) 97 07/05/17 23:00 69 07/05/17 21:00 96.9 57 16 167/83 (111) 99 07/05/17 21:00 96.9 57 16 167/83 (111) 99 07/05/17 19:08 58 16 168/72 (104) 99 Room Air 07/05/17 18:39 56 18 168/76 (106) 97 Room Air 07/05/17 17:51 99 Room Air 07/05/17 17:30 97.8 55 16 187/78 (114) 99 Physical Exam GENERAL: Well-developed, well-nourished, in no acute distress. alert and orientated HEENT: Head is normocephalic without any lesions or masses noted. Facial features are symmetric. Eyes: Pupils equal round reactive to light. Extraocular muscles are intact. Conjunctivae were clear. Oropharyngeal: Pharynx without any erythema edema. Tongue is midline without deviation. Buccal mucosa is moist without any masses or lesions NECK: Supple without any masses. Trachea midline no deviation. No JVD, no bruits are appreciated CARDIAC: Regular rhythm, regular rate. S1/S2 are heard. No murmurs gallops or rubs. LUNGS: Clear to auscultation bilaterally. No wheeze, rhonchi or rales. No use of accessory muscles on inspiration or expiration. ABDOMEN: Soft, nontender. Nondistended. Bowel sounds heard in all 4 quadrants. No organomegaly or masses. Negative rebound, negative guarding EXTREMITIES: No edema, pulses are equal bilaterally. No cyanosis or clubbing NEUROLOGY: Mood and affect appear appropriate. Cranial nerves II through XII grossly intact. Muscle strength 5/5 in upper and lower extremities bilaterally. Deep tendon reflexes are 2+ in upper and lower extremities bilaterally. MUSCULOSKELETAL: Patient does have reproducible tenderness noted along the left rib cage and the intercostal spaces from 5-7 Laboratory Laboratory Tests Test 07/05/17 18:09 07/06/17 00:00 07/06/17 05:55 White Blood Count 5.9 5.3 Red Blood Count 4.50 4.71 Hemoglobin 13.7 14.1 Hematocrit 41.0 42.4 Mean Corpuscular Volume 91.1 90.0 Mean Corpuscular Hemoglobin 30.5 30.0 Mean Corpuscular Hemoglobin Concent 33.5 33.3 Red Cell Distribution Width 12.3 12.3 Platelet Count 182 170 Mean Platelet Volume 7.9 8.3 Neutrophils (%) (Auto) 62.3 62.2 Lymphocytes (%) (Auto) 23.9 23.6 Monocytes (%) (Auto) 9.4 9.6 Eosinophils (%) (Auto) 3.3 3.3 Basophils (%) (Auto) 1.1 1.3 Neutrophils # (Auto) 3.6 3.2 Lymphocytes # (Auto) 1.4 1.3 Monocytes # (Auto) 0.6 0.5 Eosinophils # (Auto) 0.2 0.2 Basophils # (Auto) 0.1 0.1 CBC Comment DIFF FINAL DIFF FINAL Differential Comment Prothrombin Time 11.2 Prothromb Time International Ratio 1.1 Activated Partial Thromboplast Time 25.7 Blood Urea Nitrogen 19 15 Creatinine 0.94 0.89 Random Glucose 87 70 Calcium Level 8.9 8.9 Sodium Level 132 137 Potassium Level 3.8 4.2 Chloride Level 97 102 Carbon Dioxide Level 27.7 30.2 Anion Gap 7 5 Estimat Glomerular Filtration Rate 78 83 Total Creatine Kinase 38 52 68 Troponin I LESS THAN 0.02 LESS THAN 0.02 LESS THAN 0.02 Result Diagram: 07/06/17 0555 07/06/17 0555 Imaging Last Impressions Chest X-Ray 07/05/17 1743 Signed Impressions: Service Date/Time: Wednesday, July 05, 2017 17:47 - CONCLUSION: No acute cardiopulmonary disease. MD Gayle Orozco VTE Risk Assessment Gayle VTE Risk Assessment: Mod/High Risk (score >= 2) Caprini Risk Assessment Model Point Value = 1 Point Value = 2 Point Value = 3 Point Value = 5 Age 41-60 Minor surgery BMI > 25 kg/m2 Swollen legs Varicose veins or History of unexplained or recurrent spontaneous Oral contraceptives or hormone replacement Sepsis (< 1 month) Serious lung disease, including pneumonia (< 1 month) Abnormal pulmonary function Acute myocardial infarction Congestive heart failure (< 1 month) History of inflammatory bowel disease Medical patient at bed rest Age 61-74 Arthroscopic surgery Major open surgery (> 45 min) Laparoscopic surgery (> 45 min) Malignancy Confined to bed (> 72 hours) Immobilizing plaster cast Central venous access Age >= 75 History of VTE Family history of VTE Factor V Leiden Prothrombin [id number] Lupus anticoagulant Anticardiolipin antibodies Elevated serum homocysteine Heparin-induced thrombocytopenia Other congenital or acquired thrombophilia Stroke (< 1 month) Elective arthroplasty Hip, pelvis, or leg fracture Acute spinal cord injury (< 1 month) Prophylaxis Regimen Total Risk Factor Score Risk Level Prophylaxis Regimen 0-1 Low Early ambulation 2 Moderate Order ONE of the following: *Sequential Compression Device (SCD) *Heparin 5000 units SQ BID 3-4 Higher Order ONE of the following medications: *Heparin 5000 units SQ TID *Enoxaparin/Lovenox 40 mg SQ daily (WT < 150 kg, CrCl > 30 mL/min) *Enoxaparin/Lovenox 30 mg SQ daily (WT < 150 kg, CrCl > 10-29 mL/min) *Enoxaparin/Lovenox 30 mg SQ BID (WT < 150 kg, CrCl > 30 mL/min) AND/OR *Sequential Compression Device (SCD) 5 or more Highest Order ONE of the following medications: *Heparin 5000 units SQ TID (Preferred with Epidurals) *Enoxaparin/Lovenox 40 mg SQ daily (WT < 150 kg, CrCl > 30 mL/min) *Enoxaparin/Lovenox 30 mg SQ daily (WT < 150 kg, CrCl > 10-29 mL/min) *Enoxaparin/Lovenox 30 mg SQ BID (WT < 150 kg, CrCl > 30 mL/min) AND *Sequential Compression Device (SCD) Assessment and Plan Assessment and Plan Left-sided chest pain/rib pain Patient did have increased risk factors of age, hypertension, hyperlipidemia , diabetes, history tobacco use Patient did have full cardiac workup with stress testing 1-1/2 years ago which was normal Patient states that pain is recurrent since 1997, it is reproducible on palpation Recommend Motrin, start Lidoderm patch Patient had been ruled out for acute coronary event with serial cardiac enzymes that are negative EKG does not indicate any acute abnormality Hypertension, hyperlipidemia, history CVA Home medications have been continued Diabetes Accu-Cheks with sliding scale insulin DVT prevention Sequential compression devices Discharge disposition Discharge home in stable condition Activity: Ad estrella. Diet: Healthy heart diet/diabetic diet medications per medication reconciliation Follow-up primary medical doctor in one week Medical Decision Making Impression and Plan This note was transcribed by alea []cale. I, Dr. Carley Monte personally performed the history, physical exam, and medical decision making; and confirmed the accuracy of the information in the transcribed note. Authenticated by Dr. Carley Monte on 07/06/17 at 11:40. Dandre Jauregui Jul 06, 2017 10:52 Carley Monte MD Jul 06, 2017 11:41
[2017-07-06] MEDS ORDERED: LIDO1ADH4 T-DERMAL (10:55)
--- NOTE | 2017-07-06 10:55 | HHI.DCPOC ---
Discharge Care Plan Diagnosis: (1) Rib pain on left side Goals to Promote Your Health * To prevent worsening of your condition and complications * To maintain your health at the optimal level Directions to Meet Your Goals Take your medications as prescribed Follow your dietary instruction Follow activity as directed Keep your appointments as scheduled Take your immunizations and boosters as scheduled If your symptoms worsen call your PCP, if no PCP go to Urgent Care Center or Emergency Room Smoking is Dangerous to Your Health. Avoid second hand smoke Call the 24-hour hour crisis hotline for domestic abuse at Dandre Jauregui Jul 06, 2017 10:55
[2017-07-06 12:00] VITALS: BP 159/72; PULSE 54; RESP 18; TEMP 97; O2SAT 95
[2017-07-06] MEDS ORDERED: CLOPIDOGREL 75 MG TAB PO SCH (12:00)
[2017-07-06] MEDS ORDERED: HYDROCHLOROTHIAZIDE 12.5 MG CAP PO SCH (12:00)
[2017-07-06] MEDS ORDERED: LISINOPRIL 20 MG TAB PO SCH (12:00)
[2017-07-06] MEDS ORDERED: PRIMIDONE 50 MG TAB PO SCH (12:00)
[2017-07-06] MEDS ORDERED: SERTRALINE HCL 50 MG TAB PO SCH (12:00)
[2017-07-06] MEDS ORDERED: PRAVASTATIN SOD 40 MG TAB PO SCH (12:00)
[2017-07-06] MEDS ORDERED: lamoTRIgine 100 MG TAB PO SCH (12:00)
--- NOTE | 2017-07-06 22:13 | EKG ---
Date Performed: 07/05/2017 Time Performed: 17:33:14 PTAGE: 77 years EKG: SINUS BRADYCARDIA BORDERLINE ECG INTERPRETATION BASED ON A DEFAULT AGE OF 40 YEARS PREVIOUS TRACING : 03/01/2017 10.48 DOCTOR: Oneyda Carranza Interpretating Date/Time 07/06/2017 22:04:27
== END 2017-07-06 14:08 | disposition home or self-care (01) ==
LOC: PHED 17:25 → PHEDA 19:20 → PH3B 20:33
PROVIDERS: ADMIT Hospitalist; ATTEND Hospitalist
DX: R07.81 Pleurodynia (principal); R06.02 Shortness of breath; I12.9 Hypertensive chronic kidney disease with stage 1 through stage 4 chronic kidney disease, or unspecified chronic kidney disease; E11.22 Type 2 diabetes mellitus with diabetic chronic kidney disease; N18.9 Chronic kidney disease, unspecified; E78.5 Hyperlipidemia, unspecified; R00.1 Bradycardia, unspecified; I69.351 Hemiplegia and hemiparesis following cerebral infarction affecting right dominant side; F41.9 Anxiety disorder, unspecified; F32.9 Major depressive disorder, single episode, unspecified; H91.90 Unspecified hearing loss, unspecified ear; M19.90 Unspecified osteoarthritis, unspecified site; Z85.46 Personal history of malignant neoplasm of prostate; Z85.828 Personal history of other malignant neoplasm of skin; Z87.891 Personal history of nicotine dependence; Z79.899 Other long term (current) drug therapy; E78.00 Pure hypercholesterolemia, unspecified
CPT/HCPCS: 71045; 80048; 82550; 82948; 84484; 85025; 85610; 85730; 93005; 96360; 96361; 96372; 99285; G0378; J1644; J7030

== ENCOUNTER 2018-03-29 15:04 | Observation (INO) ==
--- NOTE | 2018-03-29 16:48 | ED ---
HPI General Chief Complaint: Neuro Symptoms/Deficit Stated Complaint: dizziness/R side numbness/pain in L side of head Time Seen by Provider: 03/29/18 16:06 History of Present Illness HPI Narrative: Patient is 77-year-old male with history of right-sided stroke, presented to emergency room complaining cough right side weakness worsening for 4 days. Patient stated that 03/18/2018 patient accidentally fell and injured his left side of the head, he was evaluated, CAT scan of the head was negative for acute bleed. Patient also complained about left-sided headache worsen for the last 4 days. Patient did not take any pain medications. His right-sided weakness is 4 out of 5. No facial droop, no slurred speech. Related Data Home Medications Medication Instructions Recorded Confirmed Novolin N NPH U-100 Insulin 5 units SUB-Q DAILY 12/01/17 03/29/18 PreserVision AREDS 2 1 tab PO DAILY 12/01/17 03/29/18 Vitamin D3 1,000 units PO DAILY 12/01/17 03/29/18 amlodipine 10 mg PO DAILY 12/01/17 03/29/18 clopidogrel 75 mg PO DAILY 12/01/17 03/29/18 hydrocodone-acetaminophen 5 mg PO QID PRN 12/01/17 03/29/18 lamotrigine 100 mg PO DAILY 12/01/17 03/29/18 metformin 1,000 mg PO BID 12/01/17 03/29/18 primidone 250 mg PO DAILY 12/01/17 03/29/18 sertraline 50 mg PO DAILY 12/01/17 03/29/18 simvastatin 20 mg PO DAILY 12/01/17 03/29/18 cyanocobalamin (vitamin B-12) 1,000 mcg PO DAILY 03/18/18 03/29/18 [Vitamin B-12] lisinopril-hydrochlorothiazide 1 tab PO DAILY 03/18/18 03/29/18 Allergies Allergy/AdvReac Type Severity Reaction Status Date / Time No Known Allergies Allergy Verified 03/18/18 12:26 Review of Systems ROS: all other systems reviewed are negative Neurologic Reports focal weakness PMFSH Social History Social History Substance History: No History of Abuse Second Hand Smoke Exposure: No Smoking Status: Former smoker Tobacco Type: Cigarettes How Often Do You Have a Drink Containing Alcohol: Never Recent Travel in [facility] within the Last 8 Weeks: No Recent Out of Country Travel within the Last 8 Weeks: No Immunization History Tetanus Immunization: Unsure Exam Narrative Exam Narrative: GENERAL: Patient is 77-year-old male, looks weak. SKIN: Focused skin assessment warm/dry. HEAD: Atraumatic. Normocephalic. EYES: Pupils equal and round. No scleral icterus. No injection or drainage. ENT: No nasal bleeding or discharge. Mucous membranes pink and moist. NECK: Trachea midline. No JVD. CARDIOVASCULAR: Regular rate and rhythm. No murmur appreciated. RESPIRATORY: No accessory muscle use. Clear to auscultation. Breath sounds equal bilaterally. GASTROINTESTINAL: Abdomen soft, non-tender, nondistended. Hepatic and splenic margins not palpable. MUSCULOSKELETAL: No obvious deformities. No clubbing. No cyanosis. No edema. NEUROLOGICAL: Awake and alert. No obvious cranial nerve deficits. Motor grossly within normal limits. Normal speech. PSYCHIATRIC: Appropriate mood and affect; insight and judgment normal. Course Initial Documented Vital Signs Temperature 98.0 F 03/29/18 15:10 Pulse Rate 63 03/29/18 15:10 Respiratory Rate 16 03/29/18 15:10 Blood Pressure 134/62 03/29/18 15:10 Pulse Oximetry 97 03/29/18 15:10 Last Documented Vital Signs Temperature 94.5 F L 03/30/18 04:00 Pulse Rate 60 03/30/18 04:00 Respiratory Rate 18 03/30/18 04:00 Blood Pressure 116/76 03/30/18 04:00 Pulse Oximetry 96 03/30/18 04:00 Medical Decision Making [facility] Narrative Medical decision making narrative: As per patient his weakness on the right side is worse, has headache, CAT scan of the head is ordered, blood work is pending. Patient will be given pain medication for headache reevaluation is pending. 1900: Blood work results are within normal limits, CAT scan of the head did not show any acute changes. Patient insists that his right-sided weakness is worse than before, headache resolved. Patient will be placed on observation overnight, case discussed with Dr. Johnson who accepted the patient under his service. Medical Screen Exam Complete: Yes Emergency Medical Condition: Yes Differential Diagnosis Differential Diagnosis: CVA versus URI versus headache versus intracranial hemorrhage. Lab Data Result diagrams: 03/29/18 15:37 03/29/18 15:37 Lab Results 03/29/18 03/29/18 03/29/18 Range/Units 15:37 15:37 15:37 CBC w Diff Auto diff final WBC 5.9 (4.0-11.0) th/mm3 RBC 4.41 L (4.50-5.90) mil/mm3 Hgb 13.8 (13.0-17.0) gm/dL Hct 41.4 (39.0-51.0) % MCV 93.9 (80.0-100.0) fL MCH 31.3 (27.0-34.0) pg MCHC 33.3 (32.0-36.0) % RDW 12.6 (11.6-17.2) % Plt Count 190 (150-450) th/mm3 MPV 8.6 (7.0-11.0) fL Neut % (Auto) 68.5 (16.0-70.0) % Lymph % (Auto) 19.9 (9.0-44.0) % [place] % (Auto) 7.1 (0.0-8.0) % Eos % (Auto) 2.5 (0.0-4.0) % Baso % (Auto) 2.0 (0.0-2.0) % Neut # (Auto) 4.1 (1.8-7.7) th/mm3 Lymph # (Auto) 1.2 (1.0-4.8) th/mm3 [place] # (Auto) 0.4 (0.0-0.9) th/mm3 Eos # (Auto) 0.1 (0.0-0.4) th/mm3 Baso # (Auto) 0.1 (0.0-0.2) th/mm3 WBC Differential . Differential Comment . PT 11.1 (9.8-11.6) sec INR 1.1 Ratio APTT 25.8 (24.3-30.1) sec Sodium 135 L (136-145) meq/L Potassium 3.9 (3.5-5.1) meq/L Chloride 98 (98-107) meq/L Carbon Dioxide 28.2 (21.0-32.0) meq/L Anion Gap 9 (5-15) meq/L BUN 18 (7-18) mg/dL Creatinine 1.10 (0.60-1.30) mg/dL Estimated GFR 65 L (>89) mL/min POC Glucose (68-110) mg/dl Random Glucose 154 H (74-106) mg/dL Calcium 8.6 (8.5-10.1) mg/dL Total Bilirubin 0.2 (0.2-1.0) mg/dL AST 11 L (15-37) U/L ALT 19 (12-78) U/L Alkaline Phosphatase 38 L (45-117) U/L Troponin I Less than 0.02 L (0.02-0.05) ng/mL Total Protein 6.7 (6.4-8.2) g/dL Albumin 3.6 (3.4-5.0) g/dL Urine Color (Yellw/Straw) Urine Clarity (Clear) Urine pH (5.0-8.5) Ur Specific [place] (1.002-1.035) Urine Protein (Neg-Trace) mg/dL Urine Glucose (UA) (Negative) mg/dL Urine Ketones (Negative) mg/dL Urine Occult Blood (Negative) Urine Nitrate (Negative) Urine Bilirubin (Negative) Urine Urobilinogen (Less than 2) mg/dL Ur Leukocyte Esterase (Negative) Urine RBC (0-3) /hpf Hyaline Casts (0-3) /lpf Urine Mucus (Occasional) /lpf Micro UA Comment Ur Microscopic Review Urine Culture Comments 03/29/18 03/29/18 03/30/18 Range/Units 17:55 23:43 08:07 CBC w Diff WBC (4.0-11.0) th/mm3 RBC (4.50-5.90) mil/mm3 Hgb (13.0-17.0) gm/dL Hct (39.0-51.0) % MCV (80.0-100.0) fL MCH (27.0-34.0) pg MCHC (32.0-36.0) % RDW (11.6-17.2) % Plt Count (150-450) th/mm3 MPV (7.0-11.0) fL Neut % (Auto) (16.0-70.0) % Lymph % (Auto) (9.0-44.0) % [place] % (Auto) (0.0-8.0) % Eos % (Auto) (0.0-4.0) % Baso % (Auto) (0.0-2.0) % Neut # (Auto) (1.8-7.7) th/mm3 Lymph # (Auto) (1.0-4.8) th/mm3 [place] # (Auto) (0.0-0.9) th/mm3 Eos # (Auto) (0.0-0.4) th/mm3 Baso # (Auto) (0.0-0.2) th/mm3 WBC Differential Differential Comment PT (9.8-11.6) sec INR Ratio APTT (24.3-30.1) sec Sodium (136-145) meq/L Potassium (3.5-5.1) meq/L Chloride (98-107) meq/L Carbon Dioxide (21.0-32.0) meq/L Anion Gap (5-15) meq/L BUN (7-18) mg/dL Creatinine (0.60-1.30) mg/dL Estimated GFR (>89) mL/min POC Glucose 90 111 H (68-110) mg/dl Random Glucose (74-106) mg/dL Calcium (8.5-10.1) mg/dL Total Bilirubin (0.2-1.0) mg/dL AST (15-37) U/L ALT (12-78) U/L Alkaline Phosphatase (45-117) U/L Troponin I (0.02-0.05) ng/mL Total Protein (6.4-8.2) g/dL Albumin (3.4-5.0) g/dL Urine Color Yellow (Yellw/Straw) Urine Clarity Clear (Clear) Urine pH 5.5 (5.0-8.5) Ur Specific [place] 1.025 (1.002-1.035) Urine Protein Negative (Neg-Trace) mg/dL Urine Glucose (UA) Negative (Negative) mg/dL Urine Ketones Negative (Negative) mg/dL Urine Occult Blood Negative (Negative) Urine Nitrate Negative (Negative) Urine Bilirubin Negative (Negative) Urine Urobilinogen 0.2 (Less than 2) mg/dL Ur Leukocyte Esterase Negative (Negative) Urine RBC 0-3 (0-3) /hpf Hyaline Casts 0-3 (0-3) /lpf Urine Mucus Few H (Occasional) /lpf Micro UA Comment Culture not ind Ur Microscopic Review Microscopic reviewed Urine Culture Comments Culture not ind Imaging Data Radiologist's impression: Chest X-Ray 03/29/18 16:39 CONCLUSION: Negative examination. Head CT 03/29/18 16:39 CONCLUSION: 1. No acute intracranial abnormalities. Chronic white matter ischemic changes. Remote lacunar infarcts left basal ganglia and right basal ganglia similar to March 18. . Discharge Plan Discharge Disposition Patient Disposition: 30 Still Patient Discharge Condition Condition: Fair Discharge Details Diagnosis: Right sided weakness, Headache Physicians Team ED Provider: Carlitos Perez Primary Care Provider: Do Alberto Lake Attending Provider: Sadaf Carlin Other Providers: Bahman Brock Status ED Status: Left Department Discharge Information Discharge Date/Time: 03/29/18 22:00
[2018-03-29 17:03] LABS: Baso # (Auto) 0.1 th/mm3 (0.0-0.2); Eos # (Auto) 0.1 th/mm3 (0.0-0.4); Eos % (Auto) 2.5 % (0.0-4.0); Hematocrit 41.4 % (39.0-51.0); Hemoglobin 13.8 gm/dL (13.0-17.0); Lymph # (Auto) 1.2 th/mm3 (1.0-4.8); Lymph % (Auto) 19.9 % (9.0-44.0); Mean Corpuscular HGB Conc 33.3 % (32.0-36.0); Mean Corpuscular Hemoglobin 31.3 pg (27.0-34.0); Mean Corpuscular Volume 93.9 fL (80.0-100.0); Mean Platelet Volume 8.6 fL (7.0-11.0); Mono # (Auto) 0.4 th/mm3 (0.0-0.9); Mono % (Auto) 7.1 % (0.0-8.0); Neut # (Auto) 4.1 th/mm3 (1.8-7.7); Neut % (Auto) 68.5 % (16.0-70.0); Platelet Count 190 th/mm3 (150-450); Red Blood Count 4.41 mil/mm3 (4.50-5.90); Red Cell Distribution Width 12.6 % (11.6-17.2); White Blood Count 5.9 th/mm3 (4.0-11.0)
[2018-03-29 17:11] LABS: Chloride 98 meq/L (98-107); Potassium 3.9 meq/L (3.5-5.1); Sodium 135 meq/L (136-145)
[2018-03-29 17:16] LABS: Calcium 8.6 mg/dL (8.5-10.1)
[2018-03-29 17:17] LABS: Albumin 3.6 g/dL (3.4-5.0); Anion Gap 9 meq/L (5-15); Blood Urea Nitrogen 18 mg/dL (7-18); Carbon Dioxide 28.2 meq/L (21.0-32.0); Glucose,Random 154 mg/dL (74-106)
[2018-03-29 17:19] LABS: Activated Partial Thrombo Time 25.8 sec (24.3-30.1); INR 1.1 Ratio; Prothrombin Time 11.1 sec (9.8-11.6)
[2018-03-29 17:20] LABS: Alanine Aminotransferase 19 U/L (12-78); Aspartate Aminotransferase 11 U/L (15-37); Glomerular Filtration Rate 65 mL/min (>89)
[2018-03-29 17:22] LABS: Total Protein 6.7 g/dL (6.4-8.2)
[2018-03-29 17:23] LABS: Alkaline Phosphatase 38 U/L (45-117)
--- NOTE | 2018-03-29 17:25 | XR ---
EXAM DATE: 03/29/2018 5:22 PM EDT AGE/SEX: 77 years / Male INDICATIONS: Shortness of breath. CLINICAL DATA: This is the patient's initial encounter. Patient reports that signs and symptoms have been present for 1 day and indicates a pain score of 0/10. MEDICAL/SURGICAL HISTORY: Diabetes. Stroke. None. COMPARISON: No prior exams available for comparison. FINDINGS: A single AP view of the chest demonstrates the lungs to be symmetrically aerated without evidence of mass, infiltrate or effusion. The cardiomediastinal contours are unremarkable. Osseous structures a re intact. CONCLUSION: Negative examination. Electronically signed by: North Hankins MD 03/29/2018 5:24 PM EDT
[2018-03-29 18:01] LABS: Bilirubin,Urine Negative (Negative); Clarity,Urine Clear (Clear); Color,Urine Yellow (Yellw/Straw); Glucose,Urine (UA) Negative (Negative); Leukocyte Esterase,Urine Negative (Negative); Nitrite,Urine Negative (Negative); PH,Urine 5.5 (5.0-8.5); Specific Gravity,Urine 1.025 (1.002-1.035); Urobilinogen,Urine 0.2 mg/dL (Less than 2)
[2018-03-29 18:06] LABS: Hyaline Casts,Urine 0-3 /lpf (0-3); Mucus,Urine Few /lpf (Occasional); RBC,Urine 0-3 /hpf (0-3)
[2018-03-29] MEDS: Sod Chloride 0.9% Inj 1,000 ML IV.CONT SCH (18:10)
--- NOTE | 2018-03-29 18:46 | CT ---
EXAM DATE: 03/29/2018 6:40 PM EDT AGE/SEX: 77 years / Male INDICATIONS: Right sided weakness and numbness, and left sided headache. CLINICAL DATA: This is the patient's initial encounter. Patient reports that signs and symptoms have been present for 2 days and indicates a pain score of 6/10. MEDICAL/SURGICAL HISTORY: Diabetes. Hypercholesterolemia. Stroke. Appendectomy. Shunt. RADIATION DOSE: 56.15 CTDI (mGy) COMPARISON: [facility], CT HEAD W/O CONTRAST, 03/18/2018. . TECHNIQUE: CT of the head without contrast. Using automated exposure control and adjustment of the mA and/or kV according to patient size, radiation dose was kept as low as reasonably achievable to ob tain optimal diagnostic quality images. DICOM format image data is available electronically for revi ew and comparison. FINDINGS: Cerebrum: The ventricles are normal for age. No evidence of midline shift, mass lesion, hemorrhage or acute infarction. No extraaxial fluid collections are seen. Posterior Fossa: The cerebellum and brainstem are intact. The 4th ventricle is midline. The cerebe llopontine angle is unremarkable. Extracranial: The visualized portion of the orbits is intact. Skull: The calvaria is intact. No evidence of skull fracture. CONCLUSION: 1. No acute intracranial abnormalities. Chronic white matter ischemic changes. Remote lacunar infarc ts left basal ganglia and right basal ganglia similar to March 18. . Electronically signed by: Wolfgang Meng MD 03/29/2018 6:44 PM EDT
[2018-03-29] MEDS ORDERED: Dextrose 50% in Water 50 ML Vial IV.PUSH PRN (19:19)
[2018-03-29] MEDS ORDERED: Insulin NovoLOG Aspart Correctional Sugar Inj SQ PRN (19:19)
[2018-03-30] MEDS: Sod Chloride 0.9% Inj 1,000 ML IV.CONT SCH ×4 (03:25→13:52)
--- NOTE | 2018-03-30 08:46 | P.HP ---
History of Present Illness Primary Care Physician: Do Alberto Lake History of Present Illness: This is a 77-year-old male patient with a known medical history of hypertension , diabetes, hyperlipidemia and history of CVA who presented to the ED with complaints of right-sided weakness x 4 days. Patient states that he fell at home on 03/18/18 and injured the left side of his head and presented for evaluation. He states he fell by tripping over something at home. Denies any LOC. At that time patient had a head CT done which did not reveal any acute findings. Since the time of the fall patient has noticed a left-sided headache that has worsened over the past several days as well as an associated right sided upper and lower weakness. CT upon presentation was negative. Stroke workup was initiated. Awaiting neurology consult as well as MRI/MRA today. PT evaluation done today with recommendations for home health PT. Upon assessment today patient is neurologically intact without any deficits. Complaint of a headache. - Diagnosis (1) Right sided weakness (2) Headache Review of Systems All other systems reviewed negative except as stated in HPI PMFSH - History History Provided By: Patient - Medical History Medical History: Medical History (Last Reviewed 03/30/18 @ 09:27 by Madison Noble) Bladder disorder Depression Diabetes High blood cholesterol High blood pressure Rotator cuff arthropathy of both shoulders Stroke Weakness of right side of body - Surgical History Surgical History: Surgical History (Last Reviewed 03/30/18 @ 09:27 by Madison Noble) History of carpal tunnel surgery History of prostate surgery History of skin surgery Hx of abdominal surgery Hx of appendectomy - Family History Family History: Family History (Last Updated 03/30/18 @ 09:27 by Madison Noble) Other Family history non-contributory - Social History I have reviewed the patient's Social History: Yes - Tobacco History Second Hand Smoke Exposure: No Tobacco Use In Past 30 Days: No Smoking Status: Former smoker Tobacco Type: Cigarettes - Alcohol History How Often Do You Have a Drink Containing Alcohol: Never - Substance Use History Substance History: No History of Abuse - Travel History Recent Travel in the [place] Within the Last 8 Weeks: No Recent Travel Out of the Country Within the Last 8 Weeks: No - Immunization History Tetanus Immunization: Unsure Medications and Allergies Active Medications: Active Medications Dextrose (D50w Vial) 50 ml IV.PUSH UNSCH PRN PRN Reason: per Hypoglycemic Protocol Glucagon (Glucagon Inj) 1 mg OTHER UNSCH PRN PRN Reason: per Hypoglycemic Protocol Sodium Chloride (Ns Inj) 1,000 mls @ 100 mls/hr IV.CONT .Q10H MARY ELLEN Last Admin: 03/30/18 07:00 Dose: 100 mls/hr Insulin Aspart (Novolog Insulin Correctional Sugar Inj) 0 unit SQ ACHS PRN; Protocol PRN Reason: Per Protocol Sodium Chloride (Ns Flush) 2 ml IV.FLUSH PRN PRN PRN Reason: FLUSH AFTER USING IV ACCESS Allergies Allergy/AdvReac Type Severity Reaction Status Date / Time No Known Allergies Allergy Verified 03/18/18 12:26 Home Medications Medication Instructions Recorded Confirmed Type Novolin N NPH U-100 Insulin 5 units SUB-Q DAILY 12/01/17 03/29/18 History PreserVision AREDS 2 1 tab PO DAILY 12/01/17 03/29/18 History hydrocodone-acetaminophen 5 mg PO QID PRN 12/01/17 03/29/18 History cyanocobalamin (vitamin B-12) 1,000 mcg PO DAILY 03/18/18 03/29/18 History [Vitamin B-12] lisinopril-hydrochlorothiazide 1 tab PO DAILY 03/18/18 03/29/18 History amlodipine 10 mg PO DAILY 03/30/18 03/30/18 History cholecalciferol (vitamin D3) 1,000 unit PO DAILY 03/30/18 03/30/18 History [Vitamin D3] clopidogrel 75 mg PO DAILY 03/30/18 03/30/18 History lamotrigine 100 mg PO DAILY 03/30/18 03/30/18 History metformin 1,000 mg PO BID 03/30/18 03/30/18 History primidone 250 mg PO DAILY 03/30/18 03/30/18 History sertraline 50 mg PO DAILY 03/30/18 03/30/18 History simvastatin 20 mg PO HS 03/30/18 03/30/18 History Exam Vital signs: Vital Signs 03/29/18 15:10 03/29/18 19:19 03/29/18 20:00 Temperature 98.0 F Pulse Rate 63 58 L 50 L Respiratory Rate 16 16 Blood Pressure 134/62 174/85 H Pulse Oximetry 97 98 03/29/18 22:00 03/30/18 00:00 03/30/18 04:00 Temperature 96.8 F L 96.5 F L 94.5 F L Pulse Rate 49 L 56 L 60 Respiratory Rate 18 18 18 Blood Pressure 186/83 H 115/68 116/76 Pulse Oximetry 97 95 96 Intake & Output 03/29/18 03/30/18 03/30/18 18:59 06:59 18:59 Intake Total 1050 / 1050 Balance 1050 / 1050 Weight 83 kg 82.8 kg Intake: IV 850 / 850 NS Inj 1,000 ML @ 100 mls/hr IV 850 / 850 .CONT .Q10H MARY ELLEN Rx#:[id number] Oral 200 / 200 Other: # Voids 2 Weight On Admission 82.8 kg Narrative: GENERAL: Well-developed, well-nourished patient sitting up in chair in nad. SKIN: Warm and dry. No rash. HEAD: Normocephalic. Atraumatic. EYES: Pupils equal and round. No scleral icterus. No injection or drainage. ENT: No nasal bleeding or discharge. Mucous membranes pink and moist. NECK: Supple. Trachea midline. CARDIOVASCULAR: Regular rate and rhythm. S1, S2 noted. No murmur appreciated. RESPIRATORY: No accessory muscle use. Clear to auscultation. Breath sounds equal bilaterally. GASTROINTESTINAL: Abdomen soft, non-tender, nondistended. Normoactive bowel sounds x4. MUSCULOSKELETAL: No obvious deformities. Extremities without clubbing, cyanosis , or edema. NEUROLOGICAL: Awake and alert. No obvious cranial nerve deficits. Motor grossly within normal limits. 5/5 muscle strength in upper and lower extremities. Results - Labs CBC & Chem 7: 03/29/18 15:37 03/29/18 15:37 Labs: Laboratory Results - last 24 hr 03/29/18 03/29/18 03/29/18 15:37 15:37 15:37 CBC w Diff Auto diff final WBC 5.9 RBC 4.41 L Hgb 13.8 Hct 41.4 MCV 93.9 MCH 31.3 MCHC 33.3 RDW 12.6 Plt Count 190 MPV 8.6 Neut % (Auto) 68.5 Lymph % (Auto) 19.9 [place] % (Auto) 7.1 Eos % (Auto) 2.5 Baso % (Auto) 2.0 Neut # (Auto) 4.1 Lymph # (Auto) 1.2 [place] # (Auto) 0.4 Eos # (Auto) 0.1 Baso # (Auto) 0.1 WBC Differential . Differential Comment . PT 11.1 INR 1.1 APTT 25.8 Sodium 135 L Potassium 3.9 Chloride 98 Carbon Dioxide 28.2 Anion Gap 9 BUN 18 Creatinine 1.10 Estimated GFR 65 L POC Glucose Random Glucose 154 H Calcium 8.6 Total Bilirubin 0.2 AST 11 L ALT 19 Alkaline Phosphatase 38 L Troponin I Less than 0.02 L Total Protein 6.7 Albumin 3.6 Urine Color Urine Clarity Urine pH Ur Specific [place] Urine Protein Urine Glucose (UA) Urine Ketones Urine Occult Blood Urine Nitrate Urine Bilirubin Urine Urobilinogen Ur Leukocyte Esterase Urine RBC Hyaline Casts Urine Mucus Micro UA Comment Ur Microscopic Review Urine Culture Comments 03/29/18 03/29/18 03/30/18 17:55 23:43 08:07 CBC w Diff WBC RBC Hgb Hct MCV MCH MCHC RDW Plt Count MPV Neut % (Auto) Lymph % (Auto) [place] % (Auto) Eos % (Auto) Baso % (Auto) Neut # (Auto) Lymph # (Auto) [place] # (Auto) Eos # (Auto) Baso # (Auto) WBC Differential Differential Comment PT INR APTT Sodium Potassium Chloride Carbon Dioxide Anion Gap BUN Creatinine Estimated GFR POC Glucose 90 111 H Random Glucose Calcium Total Bilirubin AST ALT Alkaline Phosphatase Troponin I Total Protein Albumin Urine Color Yellow Urine Clarity Clear Urine pH 5.5 Ur Specific [place] 1.025 Urine Protein Negative Urine Glucose (UA) Negative Urine Ketones Negative Urine Occult Blood Negative Urine Nitrate Negative Urine Bilirubin Negative Urine Urobilinogen 0.2 Ur Leukocyte Esterase Negative Urine RBC 0-3 Hyaline Casts 0-3 Urine Mucus Few H Micro UA Comment Culture not ind Ur Microscopic Review Microscopic reviewed Urine Culture Comments Culture not ind - Imaging Impressions Chest X-Ray 03/29/18 16:39 CONCLUSION: Negative examination. Head CT 03/29/18 16:39 CONCLUSION: 1. No acute intracranial abnormalities. Chronic white matter ischemic changes. Remote lacunar infarcts left basal ganglia and right basal ganglia similar to March 18. . Caprini VTE Risk Assessment Caprini VTE Risk Assessment: Moderate/High Risk (score >= 2) Caprini Risk Assessment Model: Point Value = 1 Point Value = 2 Point Value = 3 Point Value = 5 Age 41-60 Minor surgery BMI > 25 kg/m2 Swollen legs Varicose veins or History of unexplained or recurrent spontaneous Oral contraceptives or hormone replacement Sepsis (< 1 month) Serious lung disease, including pneumonia (< 1 month) Abnormal pulmonary function Acute myocardial infarction Congestive heart failure (< 1 month) History of inflammatory bowel disease Medical patient at bed rest Age 61-74 Arthroscopic surgery Major open surgery (> 45 min) Laparoscopic surgery (> 45 min) Malignancy Confined to bed (> 72 hours) Immobilizing plaster cast Central venous access Age >= 75 History of VTE Family history of VTE Factor V Leiden Prothrombin [id number] Lupus anticoagulant Anticardiolipin antibodies Elevated serum homocysteine Heparin-induced thrombocytopenia Other congenital or acquired thrombophilia Stroke (< 1 month) Elective arthroplasty Hip, pelvis, or leg fracture Acute spinal cord injury (< 1 month) Prophylaxis Regimen: Total Risk Factor Score Risk Level Prophylaxis Regimen 0-1 Low Early ambulation 2 Moderate Order ONE of the following: *Sequential Compression Device (SCD) *Heparin 5000 units SQ BID 3-4 Higher Order ONE of the following medications: *Heparin 5000 units SQ TID *Enoxaparin/Lovenox 40 mg SQ daily (WT < 150 kg, CrCl > 30 mL/min) *Enoxaparin/Lovenox 30 mg SQ daily (WT < 150 kg, CrCl > 10-29 mL/min) *Enoxaparin/Lovenox 30 mg SQ BID (WT < 150 kg, CrCl > 30 mL/min) AND/OR *Sequential Compression Device (SCD) 5 or more Highest Order ONE of the following medications: *Heparin 5000 units SQ TID (Preferred with Epidurals) *Enoxaparin/Lovenox 40 mg SQ daily (WT < 150 kg, CrCl > 30 mL/min) *Enoxaparin/Lovenox 30 mg SQ daily (WT < 150 kg, CrCl > 10-29 mL/min) *Enoxaparin/Lovenox 30 mg SQ BID (WT < 150 kg, CrCl > 30 mL/min) AND *Sequential Compression Device (SCD) Assessment and Plan - Assessment (1) Right sided weakness Code(s): R53.1 - Weakness Status: Acute (2) Headache Code(s): R51 - Headache Status: Acute - Plan This is a 77-year-old male patient with Right-sided weakness, rule out acute CVA/TIA Headache Status post fall at home History of CVA -Patient presented with right-sided weakness x 4 days as well as a left-sided headache. -Head CT reviewed and negative for any acute event. -Awaiting MRA head and neck today. Neurology consult, input and recommendations pending. -CBC and BMP reviewed, essentially unremarkable. -Lipid panel normal. -EKG reviewed showing sinus bradycardia, no ST changes to indicate ischemia. Cardiac telemetry continued overnight, no arrhythmias noted. -Patient is tolerating PO intake, passed speech evaluation. Allow PO intake. -PT evaluation ordered, appreciate input and recommendations. Hypertension, chronic: Continue to monitor blood sugar trends. Allow for permissive hypertension for now. Type 2 diabetes mellitus, chronic -ACCU check ACHS, sliding scale, monitor blood sugar trends, cover as needed. -Hemoglobin a1c 5.9. History of CAD -Has a history of cardiac stent placement. Continue home Plavix once MR results back. Hyperlipidemia, chronic: Continue home statin. DVT prophylaxis: SCDs. Will start chemical prophylaxis once MRI resulted. Discharge Planning: Awaiting MRI and neurology consult.
[2018-03-30 10:11] LABS: Chol/HDL Ratio 2.89 Ratio
[2018-03-30 11:53] LABS: Hemoglobin A1c 5.9 % (4.3-6.0)
--- NOTE | 2018-03-30 13:29 | P.DCO ---
- Diagnosis (1) Headache Status: Acute (2) Right sided weakness Status: Acute - Physical Therapy Order: Evaluate and treat, Improve ambulation, Strength and gait training - Home Health Nursing Order: Medical education, Signs/symptoms of disease process, Medication education-adverse effect, Nursing assessment with vital signs - Case Management Consult No - Certification I have seen patient Cortes Hudson on 03/30/18. My clinical findings support the need for the requested home health care services because: Deconditioned with increased weakness I certify that my clinical findings support that this patient is homebound because: Unsteady gait/balance
--- NOTE | 2018-03-30 14:22 | MR ---
EXAM DATE: 03/30/2018 2:12 PM EDT AGE/SEX: 77 years / Male INDICATIONS: . Abnormality on the other exam. CLINICAL DATA: This is the patient's initial encounter. Patient reports that signs and symptoms have been present for 2 days and indicates a pain score of 4/10. MEDICAL/SURGICAL HISTORY: Carcinoma, prostatic. Hypertension. Diabetes mellitus type II. Sta ge 3 Kidney disease. Appendectomy. Bilateral rotator cuff sx, Rt wrist sx. COMPARISON: [facility], CT HEAD W/O CONTRAST, 03/29/2018. . TECHNIQUE: Multiplanar, multisequence examination of the brain was performed without contrast. FINDINGS: Cerebrum: The ventricles are normal for age. No evidence of midline shift, mass lesion, hemorrhage or acute infarction. Probable old lacunar infarcts in bilateral basal ganglia unchanged No extraaxial fluid collections are seen. The pituitary gland and suprasellar cistern are normal in configuration . White Matter: Several chronic ischemic changes in the deep white matter tracts as expected. Posterior Fossa: The cerebellum and brainstem are intact. The 4th ventricle is midline. The cerebel lopontine angle is unremarkable. The cerebellar tonsils are normal in position. Diffusion Imaging: No focal areas of restricted diffusion are seen. No evidence of acute infarction . Extracranial: The visualized portions of the orbits and paranasal sinuses are unremarkable. CONCLUSION: 1. No evidence of acute stroke. No acute hemorrhage, edema mass or mass effect. Electronically signed by: Dylon Bagley MD 03/30/2018 2:20 PM EDT
[2018-03-30] MEDS ORDERED: Gadobutrol PF 10 MMOL/10 ML Vial (for RAD) IV.SIG ONE (14:30)
--- NOTE | 2018-03-30 14:52 | MR ---
EXAM DATE: 03/30/2018 2:49 PM EDT AGE/SEX: 77 years / Male INDICATIONS: CVA. Weakness. CLINICAL DATA: This is the patient's initial encounter. Patient reports that signs and symptoms have been present for 2 days and indicates a pain score of 0/10. MEDICAL/SURGICAL HISTORY: Carcinoma, prostatic. Diabetes mellitus type II. Hypertension. Appe ndectomy. nose and ear for ca. Prostate. COMPARISON: [facility], MR HEAD W/O CONTRAST, 03/30/2018. . TECHNIQUE: 3D [id number] MRA was performed. Source images, multiplanar STS MIP, and 3D volum e MIP reconstructions were reviewed. FINDINGS: There is excellent visualization of the major intracranial arteries out to the second-order branch ve ssels. There is no evidence for aneurysm, vessel truncation or stenosis, and no evidence for vascula r malformation. The left A1 segment is somewhat hypoplastic. No communicating arteries are noted CONCLUSION: 1. 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 No evidence of vessel filling defect or cut off is identified. Electronically signed by: Dylon Bagley MD 03/30/2018 2:51 PM EDT
--- NOTE | 2018-03-30 15:01 | MR ---
EXAM DATE: 03/30/2018 2:56 PM EDT AGE/SEX: 77 years / Male INDICATIONS: . Abnormality on other exam. CLINICAL DATA: This is the patient's initial encounter. Patient reports that signs and symptoms have been present for 2 days and indicates a pain score of 5/10. MEDICAL/SURGICAL HISTORY: Carcinoma, pharyngeal. Hypertension. Diabetes mellitus type II. St age 3 kidney disease. Appendectomy. Bilateral rotator cuffs, Prostate sx, Rt wrist sx. COMPARISON: [facility], CTA NECK W CONTRAST W 3D, 01/19/2018. . TECHNIQUE: 10 ml Gadavist (gadobutrol) contrast infused MRA (single exam dose) of the extracranial circulation was performed using a neurovascular coil. Postprocessing was performed, including rotati ng sub-volume maximum intensity projections of each carotid artery, rotating full-volume maximum inte nsity projections of both carotid arteries, sagittal and coronal sliding thin-slab reformations of ea ch carotid artery, and left oblique sliding thin-slab reformation through the aortic arch to include the origin of the arch branch vessels. FINDINGS: Aortic Arch : There is a three-vessel origin of the great vessels from the aorta. No evidence of o stial narrowing. Right Carotid : The common carotid artery is intact. The carotid bulb has a normal configuration wi thout ulceration or narrowing. There is a small focal area of narrowing above the internal carotid or igin by 1 cm. Its approximately 50% area of narrowing. The external carotid artery is intact. Left Carotid : The common carotid artery is intact. The carotid bulb has a normal configuration wit hout ulceration or narrowing. The internal carotid artery lumen is smooth without stenosis. The ext ernal carotid artery is intact. Vertebrals : The vertebral arteries have a symmetric diameter. No stenotic lesions are seen. CONCLUSION: 1. Very short segment focal area of narrowing shortly after the internal carotid artery origin. Appr oximately 50% narrowed for very short segment. Percent stenosis is calculated using the diameter of the stenotic region over the diameter of the nor mal distal internal carotid artery Electronically signed by: Dylon Bagley MD 03/30/2018 3:00 PM EDT
--- NOTE | 2018-03-30 15:15 | ECG ---
Date Performed: 03/29/2018 Time Performed: 16:53:14 PTAGE: 77 years EKG: SINUS BRADYCARDIA Since the previous tracing, no significant change noted BORDERLINE ECG PREVIOUS TRACING : 01/19/2018 16.20 DOCTOR: Miki Servin Interpretating Date/Time 03/30/2018 15:00:11
[2018-03-30] MEDS ORDERED: amLODIPine 10 MG Tablet PO SCH (16:00)
--- NOTE | 2018-03-30 18:34 | P.CONNEU ---
History of Present Illness Service: Neurology Primary Care Provider: Do [place] [place] Chief Complaint: Possible TIA History of Present Illness: 77-year-old male with a history of previous stroke affecting his right side admitted for right-sided weakness back to his baseline now according to his . Takes Plavix daily. Previous stroke affecting his right side that he recovered pretty well from overall. Also with a history of resting and kinetic tremor under evaluation in the outpatient setting by local neurology. Does take primidone daily. Also complains of left-sided headache which comes and goes but absent today. No vision loss. Denies any fever night sweats chills or jaw claudication. Use a walker sometimes a wheelchair at home. Review of Systems All other systems reviewed negative except as stated in HPI [facility] - History History Provided By: Patient - Medical History Medical History: Medical History (Last Reviewed 03/30/18 @ 11:50 by Sana El) Bladder disorder Depression Diabetes High blood cholesterol High blood pressure Rotator cuff arthropathy of both shoulders Stroke Weakness of right side of body - Surgical History Surgical History: Surgical History (Last Reviewed 03/30/18 @ 11:50 by Sana El) History of carpal tunnel surgery History of prostate surgery History of skin surgery Hx of abdominal surgery Hx of appendectomy - Family History Family History: Family History (Last Updated 03/30/18 @ 09:27 by Madison Noble) Other Family history non-contributory - Tobacco History Second Hand Smoke Exposure: No Tobacco Use In Past 30 Days: No Smoking Status: Former smoker Tobacco Type: Cigarettes - Alcohol History How Often Do You Have a Drink Containing Alcohol: Never - Substance Use History Substance History: No History of Abuse - Travel History Recent Travel in the [place] Within the Last 8 Weeks: No Recent Travel Out of the Country Within the Last 8 Weeks: No - Immunization History Tetanus Immunization: Unsure Medications and Allergies Active Medications: Active Medications Amlodipine Besylate (Norvasc) 10 mg PO DAILY MARY ELLEN Last Admin: 03/30/18 17:28 Dose: 10 mg Clopidogrel Bisulfate (Plavix) 75 mg PO DAILY MARY ELLEN Cyanocobalamin (Vitamin B12) 1,000 mcg PO DAILY [facility] Dextrose (D50w Vial) 50 ml IV.PUSH UNSCH PRN PRN Reason: per Hypoglycemic Protocol Glucagon (Glucagon Inj) 1 mg OTHER UNSCH PRN PRN Reason: per Hypoglycemic Protocol Insulin Aspart (Novolog Insulin Correctional Sugar Inj) 0 unit SQ ACHS PRN; Protocol PRN Reason: Per Protocol Last Admin: 03/30/18 13:07 Dose: 1 unit Lamotrigine (Lamictal) 100 mg PO DAILY MARY ELLEN Pravastatin Sodium (Pravachol) 40 mg PO HS MARY ELLEN Primidone (Mysoline) 250 mg PO DAILY MARY ELLEN Sodium Chloride (Ns Flush) 2 ml IV.FLUSH PRN PRN PRN Reason: FLUSH AFTER USING IV ACCESS Allergies Allergy/AdvReac Type Severity Reaction Status Date / Time No Known Allergies Allergy Verified 03/18/18 12:26 Home Medications Medication Instructions Recorded Confirmed Type Novolin N NPH U-100 Insulin 5 units SUB-Q DAILY 12/01/17 03/29/18 History PreserVision AREDS 2 1 tab PO DAILY 12/01/17 03/29/18 History hydrocodone-acetaminophen 5 mg PO QID PRN 12/01/17 03/29/18 History cyanocobalamin (vitamin B-12) 1,000 mcg PO DAILY 03/18/18 03/29/18 History [Vitamin B-12] lisinopril-hydrochlorothiazide 1 tab PO DAILY 03/18/18 03/29/18 History amlodipine 10 mg PO DAILY 03/30/18 03/30/18 History cholecalciferol (vitamin D3) 1,000 unit PO DAILY 03/30/18 03/30/18 History [Vitamin D3] clopidogrel 75 mg PO DAILY 03/30/18 03/30/18 History lamotrigine 100 mg PO DAILY 03/30/18 03/30/18 History metformin 1,000 mg PO BID 03/30/18 03/30/18 History primidone 250 mg PO DAILY 03/30/18 03/30/18 History sertraline 50 mg PO DAILY 03/30/18 03/30/18 History simvastatin 20 mg PO HS 03/30/18 03/30/18 History Exam Vital signs: Vital Signs 03/29/18 19:19 03/29/18 20:00 03/29/18 22:00 Temperature 96.8 F L Pulse Rate 58 L 50 L 49 L Respiratory Rate 16 18 Blood Pressure 174/85 H 186/83 H Pulse Oximetry 98 97 03/30/18 00:00 03/30/18 04:00 03/30/18 08:00 Temperature 96.5 F L 94.5 F L 97.9 F Pulse Rate 56 L 60 49 L Respiratory Rate 18 18 Blood Pressure 115/68 116/76 184/73 H Pulse Oximetry 95 96 03/30/18 12:00 03/30/18 16:00 03/30/18 17:31 Temperature 98.2 F 97.4 F L Pulse Rate 78 51 L 53 L Respiratory Rate 16 Blood Pressure 178/74 H 171/76 H Pulse Oximetry 95 95 Intake & Output 03/29/18 03/30/18 03/30/18 18:59 06:59 18:59 Intake Total 1050 / 1050 1700 / 1700 Balance 1050 / 1050 1700 / 1700 Weight 83 kg 82.8 kg Intake: IV 850 / 850 700 / 700 NS Inj 1,000 ML @ 100 mls/hr IV 850 / 850 700 / 700 .CONT .Q10H MARY ELLEN Rx#:[id number] Oral 200 / 200 1000 / 1000 Other: # Voids 2 4 Weight On Admission 82.8 kg Narrative: GENERAL: in NAD, SKIN: Warm and dry. HEAD: Atraumatic. Normocephalic. EYES: Pupils equal and round. No scleral icterus. ENT: No nasal bleeding or discharge. Mucous membranes pink and moist. NECK: Trachea midline. No JVD. CARDIOVASCULAR: Regular rate and rhythm. RESPIRATORY: No accessory muscle use. GASTROINTESTINAL: Abdomen soft, non-tender, nondistended. MUSCULOSKELETAL: Extremities without clubbing, cyanosis, or edema. No obvious deformities. NEUROLOGICAL: Awake and alert. No aphasia, fluent articulate, No facial asymmetry, no temporal tenderness, OU 3-2mm, eomi, VFF, No drift, able raise all 4 extremity gravity mild right kinetic and postural tremor slight increased tone, slightly reduced fine finger movements right hand compared to the left Msr 1-2+ sym, no clonus, planterflexor, gait not assessed secondary to fall risk PSYCHIATRIC: Appropriate mood and affect; insight and judgment normal. - Constitutional no acute distress - Routine HEENT Exam Head: Present: normocephalic Results - Labs CBC & Chem 7: 03/29/18 15:37 03/29/18 15:37 Labs: Laboratory Results - last 24 hr 03/29/18 03/30/18 03/30/18 23:43 06:20 06:20 POC Glucose 90 Hemoglobin A1c 5.9 Triglycerides 135 Cholesterol 142 LDL Cholesterol, Calc 66 HDL Cholesterol 49.0 Cholesterol/HDL Ratio 2.89 03/30/18 03/30/18 03/30/18 08:07 12:11 16:34 POC Glucose 111 H 174 H 90 Hemoglobin A1c Triglycerides Cholesterol LDL Cholesterol, Calc HDL Cholesterol Cholesterol/HDL Ratio - Imaging Impressions Head CT 03/29/18 16:39 CONCLUSION: 1. No acute intracranial abnormalities. Chronic white matter ischemic changes. Remote lacunar infarcts left basal ganglia and right basal ganglia similar to March 18. . Head MRA 03/30/18 00:00 CONCLUSION: 1. 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 No evidence of vessel filling defect or cut off is identified. Head MRI 03/30/18 07:04 CONCLUSION: 1. No evidence of acute stroke. No acute hemorrhage, edema mass or mass effect. Neck MRA 03/30/18 07:04 CONCLUSION: 1. Very short segment focal area of narrowing shortly after the internal carotid artery origin. Approximately 50% narrowed for very short segment. Percent stenosis is calculated using the diameter of the stenotic region over the diameter of the normal distal internal carotid artery Review/Management - Diagnosis (1) TIA (transient ischemic attack) Code(s): G45.9 - Transient cerebral ischemic attack, unspecified Status: Acute Current Visit: Yes (2) Essential tremor Code(s): G25.0 - Essential tremor Status: Acute Current Visit: Yes (3) Parkinsonism Code(s): G20 - Parkinson's disease Status: Acute Current Visit: Yes (4) Chronic arterial ischemic stroke Code(s): I69.30 - Unspecified sequelae of cerebral infarction Status: Acute Current Visit: Yes - Review/Management Plan: Possible TIA versus generalized deconditioning Neuroimaging negative for any acute lesion. MRI brain suggestive of stenotic left A1 a which may be congenital chronic from atherosclerotic disease. Right carotid with about 50% stenosis opposite side of where he is having symptoms Mild left-sided headache which is transient, left temporal region but no tenderness; possibility of GCA LDL 66 Recommendation Change Plavix to Aggrenox twice a day Check ESR, CRP Should get long-term event monitor outpatient through his PCP, cardiology Behavioral modification and risk factor reduction. Weight loss, blood pressure control, blood sugar control, lipid control. Exercise
[2018-03-31] MEDS ORDERED: lamoTRIgine 100 MG Tablet PO SCH ×2 (09:00)
[2018-03-31] MEDS ORDERED: Primidone 250 MG Tablet PO SCH ×2 (09:00)
== END 2018-03-30 22:46 | disposition home or self-care (01) ==
LOC: PHEDA 15:04 → PHED 15:04 → PH3 22:00
PROVIDERS: ADMIT Family Medicine; ATTEND Family Medicine